=== PATIENT | male | born 1960 | race Caucasian/White ===

== ENCOUNTER 2023-11-30 08:46 | Outpatient (RCR) | payer MEDICARE, SELFPAY ==
[2023-11-30 09:08] VITALS: BP 152/87; PULSE 91; RESP 16; TEMP 36.3; BMI 28.8
--- NOTE | 2023-11-30 10:24 | HP.PCM_ITS ---
History of Present Illness Date of Service: 11/30/23 Chief Complaint: Right foot ulceration History of Wound: Patient is a 63-year-old male who presents to the wound care center today for ulceration subfifth metatarsal head of the right foot. He states that the ulcer has been present for about a day or two prior to his visit to the family physician on 11/23/2023. He stated he noticed some swelling on the right foot and does admit to neuropathy and does not feel anything in his feet. His noted that he had an ulcer on the bottom of the foot near the fifth metatarsal head and did clean it with peroxide and placed Neosporin and a Band- Aid on it. He states that the family doctor did take cultures due to the surrounding cellulitis which was also delineated by skin markings. He was empirically started on clindamycin 150 mg 3 times daily and Cipro 500 mg twice daily. Patient reports antibiotics are improving the redness of the foot and he states he feels well overall. He was referred to the wound care center for continued follow-up and healing of the ulceration of the right foot. 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 He denies N/V/F/chills. Denies further complaints. [facility] Home Medications clindamycin HCl 150 mg capsule (Cleocin HCl) 450 mg PO Q8H 11/30/23 [History Last Taken Unknown] empagliflozin 25 mg tablet (Jardiance) 25 mg PO DAILY 11/30/23 [History Last Taken Unknown] glipizide 5 mg tablet 5 mg PO DAILY 11/30/23 [History Last Taken Unknown] hydrochlorothiazide 25 mg tablet 25 mg PO DAILY 11/30/23 [History Last Taken Unknown] levofloxacin 750 mg tablet 750 mg PO DAILY 11/30/23 [History Last Taken Unknown] rosuvastatin 10 mg tablet (Crestor) 10 mg PO DAILY 11/30/23 [History Last Taken Unknown] ROS Constitutional Constitutional: Denies anorexia, chills, fatigue or fever(s) Eyes Eyes: Denies blurry vision, change in vision or double vision ENT HEENT: Denies dysphagia, nasal congestion, nasal discharge or sore throat Cardiovascular Cardiovascular: Denies chest pain, claudication or palpitations Respiratory/Chest Respiratory/Chest: Denies cough, shortness of breath at rest or wheezing Gastrointestinal Gastrointestinal: Denies abdominal pain, constipation, diarrhea, nausea or vomiting Genitourinary Genitourinary: Denies dysuria, hematuria, urinary frequency or urinary urgency Musculoskeletal Musculoskeletal: Denies joint pain, joint stiffness or joint swelling Integumentary Integumentary: Denies jaundice, lesions, pruritus or rash Neurologic Neurologic: Denies dizziness, numbness or seizures Psychiatric Psychiatric: Denies anxiety or depression Endocrine Endocrinology: Denies cold intolerance or heat intolerance Hematologic/Lymphatic Hematologic/Lymphatic: Denies easy bleeding or easy bruising Vital Signs Vital Signs Vital Signs: 11/30/23 09:08 Temperature 97.4 F L Temperature Source Temporal Pulse Rate 91 Respiratory Rate 16 Blood Pressure 152/87 H Blood Pressure Mean 108 Blood Pressure Source Monitor Blood Pressure Position Sitting Blood Pressure Location Right Arm Oxygen Delivery Method Room Air Weight Weight: 96.615 kg Body Mass Index (BMI) 28.8 Physical Exam Const alert, oriented x3 and no apparent distress General Appearance: cooperative HEENT normocephalic Eyes General Eye: normal appearance of both eyes Neck General: normal visual inspection Lymph Lymphatic: no lymphadenopathy noted and no lymphedema noted Resp normal respiratory effort Cardio regular rate and regular rhythm Extremity normal capillary refill, no joint enlargement, no calf tenderness and no pedal edema Extremity Narrative: Right lower extremity: Vascular: DP and PT pulses palpable. Capillary fill time less than 5 seconds to digits. Normal temperature gradient. Hair growth is diminished to the foot. Neurological: Light touch sensation diminished. Gross sensation intact. Protective sensation is absent to the foot consistent with diabetic peripheral polyneuropathy. Dermatologic: Skin appears well-hydrated with normal turgor. Negative Stemmer sign second digit. No pedal edema noted. He has previously had evidence of cellulitis with border marking still present on skin. There is evidence of resolving/improving erythema while currently on antibiotics. There is an ulceration noted subfifth metatarsal head with fibrogranular tissue in the wound bed and slightly macerated rim with some hyperkeratosis. No malodor, no purulent drainage noted, no palpable fluctuance/bogginess noted, no visible abscess formation. Musculoskeletal: Muscle strength 5 of 5 age-appropriate. There is decreased range of motion of the first metatarsophalangeal joint without pain or crepitus. There is decreased range of motion of the ankle joint in dorsiflexion with knee extended without pain or crepitus. Left lower extremity BKA with prosthesis Skin no rashes or lesions noted, skin turgor normal and no jaundice Neuro moves all extremities Debridement Note Debridement Note Wound debrided: Subfifth metatarsal head right foot Laterality: Right Wound Grade/Stage: Nance stage I Type of Debridement: Excisional debridement Anesthesia Used: 5% Lidocaine Gel Depth: Down to and including healthy tissue and in the subcutaneous layer Percentage of wound debrided: 100 Instrument Used: 5mm curette and #15 blade Tissue Removed: Fibrous, devitalized subcutaneous, biofilm, slough Severity: Fat Layer Exposed Amount of bleeding with debridement: Mild Bleeding Controlled with: Compression and gauze Patient tolerated procedure: Patient tolerated procedure well Post-Debridement Measurements and Additional Note: Post-Debridement Measurements/Treatment - Nurse 1 - General Ulcer Assessment Start: 11/30/23 09:08 Freq: Status: Active Protocol: CHARO Activity Type Activity Date Activity User E-sign Co-sign Detail Recorded Client Recorded Date Recorded By Document 11/30/23 09:08 Desktop 11/30/23 09:34 11/30/23 09:08 - Today's Visit Information Type of service Initial Visit Arrival Mode Wheelchair Patient Identification Verified (Name & Yes ) Height and Weight Height 6 ft Weight 96.615 kg Weight in Pounds 213.0 lbs Weight Measurement Method Stated by Patient Body Mass Index (BMI) 28.8 BMI Classification Overweight BSA - Calixto 2.19 Vital Signs Temperature (97.8 F-99.1 F) 97.4 F L Temperature Source Temporal Pulse Rate (60-100) 91 Pulse Location Monitor Respiratory Rate (12-18) 16 Respiratory rate source Observation Oxygen Delivery Method Room Air Blood Pressure (90/60-120/80) 152/87 H Blood Pressure Mean 108 Source Monitor Position Sitting Blood Pressure Location Right Arm History Since Last Visit- (Skip if this is Patient's initial visit) Left Footwear Regular Shoe Right Footwear Regular Shoe Pain Scale: 0-10 Numeric Is Patient Pain Free? Yes Lower Extremity Assessment/ Foot Assessment/ Toe Nail Assessment Right -Posterior Tibial Palpable Yes -Dorsalis Pedis Palpable Yes -Hair Growth on Legs No -Hair Growth on Toes No -Temperature of Extremity Warm -Capillary Refill Less than 3 Seconds -Dependent Rubor No -Other Deformity No -Prior Foot Ulcer No -Charcot Joint No -Prior Amputation No -Thick No -Discolored No -Deformed No -Improper Length & Hygeine No Communication Assessment Preferred language Malawian Processing Lead Required No Able to Read Yes Able to Write Yes Communication Tools None Caregiver Communication Skills No Impairment Impairment Right Hearing Abillity Normal Left Hearing Abillity Normal Visual Assistive Devices Glasses Teaching Assessment Preferences Verbal,Written Barriers to Learning None Readiness To Learn Excellent Willingness to Engage in Self Management High Activies Readiness to Engage in Self Management High Activities Anxiety Level Calm Cooperation Cooperative Perception Coherent Interest in Health Problem Asks Questions Education Importance Acknowledges Need Does Patient Smoke tobacco or other No substances Is Patient Diabetic Yes Functional Assessment Recent Decline in Ability to Perform Denies Any Declines Assistive Device With Patient Yes List Device(s) with Patient wheelchair Culture/Episcopalian/Garment Worker Cultural/Episcopalian Needs that may affect No Treatment Plan Would you allow our hospital milk pickup driver to No meet you for the purpose of spiritual/ emotional support? Garment Worker to contact place of episcopal No WC - Nurse 1 - General Ulcer Measurement Start: 11/30/23 09:08 Freq: Status: Active Protocol: Activity Type Activity Date Activity User E-sign Co-sign Detail Recorded Client Recorded Date Recorded By Document 11/30/23 09:08 Desktop 11/30/23 09:34 11/30/23 09:08 Wound Center Nurse 1 Right Lateral Plantar -Current Size (cm) - Length 1.1 -Current Size (cm) - Width 1.1 -Current Size (cm) - Depth 0.1 -Total Square Cm 1.21 -Date of Last Picture (Recall this 11/30/23 field) -Photo Taken Yes -Epithelialization None Present -Tunneling No -Undermining/Tunneling No -Circular Undermining No -Exudate Amt None Present -Wound Margin Distinct, Outline Attached -Granulation Amt Small (1-33%) -Granulation Quality [place] -Slough/Fibrin No -Necrosis Amt None Present (0 %) -Necrotic Tissue Type Adherent Slough -Structure Exposed N/A -Texture (Monique-wound Skin Appearance) Assessed -Moisture (Monique-wound Skin Appearance) Assessed -Color (Monique-wound Skin Appearance) Assessed -Temperature (Monique-wound Skin No Abnormality Appearance) (Pt Warm) -Ulcer Cleansing Soap and Water -Foul Odor after Cleansing No -Anesthetic Used 5% Lidocaine Gel WC - Nurse 2 - General Ulcer CM Notes Start: 11/30/23 09:08 Freq: Status: Active Protocol: Activity Type Activity Date Activity User E-sign Co-sign Detail Recorded Client Recorded Date Recorded By Document 11/30/23 09:46 [facility] Desktop 11/30/23 09:59 [facility] 11/30/23 09:46 Wound Center Nurse 2 -Time 09:46 -Correct Patient Yes -Correct Side, Site, Position Yes -Correct Procedure Yes -Procedure Performed Yes -Type of Procedure Debridement -Clinical Debridement Subcutaneous -Tissue Removed Subcutaneous -Post Debridement (cm) - Length 1 -Post Debridement (cm) - Width 1.2 -Post Debridement (cm) - Depth 0.1 -Total Square (Post) (cm) 1.2 -Area of Debridement (cm) - Length 1 -Area of Debridement (cm) - Width 1.2 -Total Square (Area) (cm) 1.2 -Tunneling No -Undermining/Tunneling No -Circular Undermining No -Wound/Ulcer Outcome Not Healed -Ulcer Cleansing Rinsed/ Irrigated with Saline -Foul Odor after Cleansing No -Bioengineered Tissue No -Bleeding Controlled with Pressure -Treatment Response Procedure Tolerated Well -Offloading Yes -Type of Offloading Surgical Shoe -Debridement - Subq, 1st 20sq cm Yes -Wound Comment(s) discussed copay w/ debridement . pt and agreeable. Pain Scale: 0-10 Numeric Is Patient Pain Free? Yes - Nurse 3 - General Ulcer D/C NN Start: 11/30/23 09:08 Freq: Status: Active Protocol: Activity Type Activity Date Activity User E-sign Co-sign Detail Recorded Client Recorded Date Recorded By Document 11/30/23 10:04 Desktop 11/30/23 10:14 11/30/23 10:04 Wound Care Center Nurse 3 Right Lateral Plantar -Ulcer Cleansing Rinsed/ Irrigated with Saline -Foul Odor after Cleansing No -Other Dressing dakins -Primary Dressing Covered/Secured with Dry Gauze & Roll Gauze, Secured with Tape Treatment Response Procedure Tolerated Well Pain Scale: 0-10 Numeric Is Patient Pain Free? Yes WC - Visit Discharge Discharge Condition Stable Ambulatory Status Ambulatory Transportation Private Auto Notes: surgical shoe padded per Dr Collado. Assessment/Plan Assessment/Plan (1) Non-pressure chronic ulcer of other part of right foot with fat layer exposed: CODE(S): L97.512 - Non-pressure chronic ulcer of other part of right foot with fat layer exposed (2) Diabetes mellitus with diabetic polyneuropathy: CODE(S): E11.42 - Type 2 diabetes mellitus with diabetic polyneuropathy (3) Type 2 diabetes mellitus with foot ulcer: CODE(S): E11.621 - Type 2 diabetes mellitus with foot ulcer; L97.509 - Non-pressure chronic ulcer of other part of unspecified foot with unspecified severity (4) Acquired absence of left leg below knee: CODE(S): Z89.512 - Acquired absence of left leg below knee (5) Hypertension: CODE(S): I10 - Essential (primary) hypertension (6) History of colon cancer: CODE(S): Z85.038 - Personal history of other malignant neoplasm of large intestine (7) Hypercholesterolemia: CODE(S): E78.00 - Pure hypercholesterolemia, unspecified PLAN: Plan Patient seen and evaluated Ulceration debrided as noted in the clinical panel above. Ulceration subfifth metatarsal head measures 1.0 cm x 1.2 cm x 0.1 cm. No signs of infection. Dakin's wet-to-dry dressing applied and anchored with Cristobal wrap. Patient was then offloaded in surgical shoe with fifth metatarsal head cut out to reduce pressure at ulcerative site. He and were instructed to change dressing daily demonstration of a dressing change was performed by nursing staff. Discussed with patient to continue to finish oral antibiotic course. He was placed by his PCP on clindamycin 150 mg 3 times daily x 10 days and ciprofloxacin 500 mg twice daily x 10 days. Antibiotic stop date 12/03/2023. Discussed applying for advanced wound care product for application at next visit. Discussed adequate protein intake to aid in wound healing. Darrius supplementation was also recommended. Discussed proper diabetic diet to aim for tight glycemic control. He does report good standing with his A1c per his PCP. Discussed not ambulating barefoot as he does have significant diabetic peripheral polyneuropathy. Discussed that socks do include barefoot. Encouraged shoe gear to be worn at all times. Discussed importance of daily foot checks and pain close examination for suspicious lesions, cuts, wounds, pressure sores and that if he does notice any of these he is to report to PCP or call our office for further evaluation. Discussed signs and symptoms of infection today. Discussed if he has increasing redness about the wound site that moves up the leg, purulent drainage from the wound site, increasing foul odor from the wound, or if he experiences fever greater than 101 degree accompanied by nausea, vomiting, chills that these are signs of a progressing infection and he should report to the ED for IV antibiotics and further evaluation. He and his both voiced understanding of this today. The following work up and care recommendations were made: Dressing: Dakin's wet-to-dry. Change dressing daily. Wash: Soap and water Tissue growth optimization: Dakin's Offload: Continue to offload in surgical shoe with fifth metatarsal head cut out Vascular: Palpable pedal pulses, vascular status not impacting healing Edema: No edema noted Infection: No signs of infection. Patient currently finishing oral antibiotics with improving localized cellulitis. Discussed finishing antibiotics as stated above to completion. Pain: May take [id number] Tylenol for discomfort. Patient does have significant diabetic peripheral polyneuropathy. Host factors: Diabetes mellitus type 2 with peripheral polyneuropathy, history of previous ulceration/infection with BKA left lower extremity. I answered all the patient's questions. To return to the wound healing center in 1 week or call sooner if the patient has any questions or concerns.
--- NOTE | 2023-12-08 12:20 | WC ---
3.25.24 RT LAT PLANTAR FT
== END 2023-12-03 23:59 | disposition home or self-care (01) ==
LOC: WC 08:46
PROVIDERS: PCP Family Medicine; Visit Provider Student in an Organized Health Care Education/Training Program
DX: E11.621 Type 2 diabetes mellitus with foot ulcer (principal); L97.512 Non-pressure chronic ulcer of other part of right foot with fat layer exposed; Z89.512 Acquired absence of left leg below knee; E11.42 Type 2 diabetes mellitus with diabetic polyneuropathy; E78.00 Pure hypercholesterolemia, unspecified; I10 Essential (primary) hypertension; Z79.84 Long term (current) use of oral hypoglycemic drugs; Z79.899 Other long term (current) drug therapy; Z85.038 Personal history of other malignant neoplasm of large intestine
CPT/HCPCS: 11042; 99204; G0463

== ENCOUNTER 2023-12-28 09:15 | Outpatient (RCR) | payer MEDICARE, SELFPAY ==
[2023-12-04 00:52] VITALS: BP 152/87; PULSE 91; RESP 16; TEMP 36.3; BMI 28.8
[2023-12-07 10:11] VITALS: BP 160/77; PULSE 85; RESP 18; TEMP 36.1; BMI 28.8
--- NOTE | 2023-12-07 11:34 | PCM.WC.PN ---
History of Present Illness Date of Service: 12/07/23 Chief Complaint: Right foot ulceration History of Wound: Patient is a 63-year-old male who presents to the wound care center today for ulceration subfifth metatarsal head of the right foot. He states that the ulcer has been present for about a day or two prior to his visit to the family physician on 11/23/2023. He stated he noticed some swelling on the right foot and does admit to neuropathy and does not feel anything in his feet. His noted that he had an ulcer on the bottom of the foot near the fifth metatarsal head and did clean it with peroxide and placed Neosporin and a Band-Aid on it. He states that the family doctor did take cultures due to the surrounding cellulitis which was also delineated by skin markings. He was empirically started on clindamycin 150 mg 3 times daily and Cipro 500 mg twice daily. Patient reports antibiotics are improving the redness of the foot and he states he feels well overall. He was referred to the wound care center for continued follow-up and healing of the ulceration of the right foot. 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 He denies N/V/F/chills. Denies further complaints. Subjective Subjective This is a 63-year-old male who presents to the wound care center for follow-up of a plantar fifth metatarsal head ulceration of the right foot. States he has finished his oral antibiotic and has continued daily dressing changes with Dakin's as instructed. States overall he feels well. Denies constitutional symptoms. Denies further complaints. Objective Data Objective Data Vital Signs: Vital Signs Temp Pulse Resp BP O2 Del Method 97 F L 85 18 160/77 H Room Air 12/07/23 10:11 12/07/23 10:11 12/07/23 10:11 12/07/23 10:11 12/07/23 10:11 Oxygen Delivery Method Room Air Weight: 96.615 kg Body Mass Index (BMI) 28.8 Physical Exam Const alert, oriented x3 and no apparent distress General Appearance: cooperative HEENT normocephalic Eyes General Eye: normal appearance of both eyes Neck General: normal visual inspection Lymph Lymphatic: no lymphadenopathy noted and no lymphedema noted Resp normal respiratory effort Cardio regular rate and regular rhythm Extremity normal capillary refill, no joint enlargement, no calf tenderness and no pedal edema Extremity Narrative: Right lower extremity: Vascular: DP and PT pulses palpable. Capillary fill time less than 5 seconds to digits. Normal temperature gradient. Hair growth is diminished to the foot. Neurological: Light touch sensation diminished. Gross sensation intact. Protective sensation is absent to the foot consistent with diabetic peripheral polyneuropathy. Dermatologic: Skin appears well-hydrated with normal turgor. Negative Stemmer sign second digit. No pedal edema noted. He has previously had evidence of cellulitis with border marking still present on skin. There is evidence of resolving/improving erythema while currently on antibiotics. There is an ulceration noted subfifth metatarsal head with fibrogranular tissue in the wound bed and slightly macerated rim with some hyperkeratosis. No malodor, no purulent drainage noted, no palpable fluctuance/bogginess noted, no visible abscess formation. Musculoskeletal: Muscle strength 5 of 5 age-appropriate. There is decreased range of motion of the first metatarsophalangeal joint without pain or crepitus. There is decreased range of motion of the ankle joint in dorsiflexion with knee extended without pain or crepitus. Left lower extremity BKA with prosthesis Skin no rashes or lesions noted, skin turgor normal and no jaundice Neuro moves all extremities Debridement Note Debridement Note Wound debrided: Subfifth metatarsal head Laterality: Right Wound Grade/Stage: Nance stage I Type of Debridement: Excisional debridement Anesthesia Used: 5% Lidocaine Gel Depth: Down to and including healthy tissue and in the subcutaneous layer Percentage of wound debrided: 100 Instrument Used: 5mm curette Tissue Removed: Fibrous, devitalized subcutaneous, biofilm, slough Severity: Fat Layer Exposed Amount of bleeding with debridement: Mild Bleeding Controlled with: Compression and gauze Patient tolerated procedure: Patient tolerated procedure well Post-Debridement Measurements and Additional Note: Post-Debridement Measurements/Treatment - Nurse 1 - General Ulcer Assessment Start: 12/07/23 10:10 Freq: Status: Active Protocol: CHARO Activity Type Activity Date Activity User E-sign Co-sign Detail Recorded Client Recorded Date Recorded By Document 12/07/23 10:11 OR Desktop 12/07/23 10:14 OR 12/07/23 10:11 - Today's Visit Information Type of service Follow-up Visit (Physician/PATIENT COMPANION ) Arrival Mode Ambulatory Accompanied by Patient Identification Verified (Name & Yes ) Safety Precautions Fall Prevention Height and Weight Body Mass Index (BMI) 28.8 BMI Classification Overweight Vital Signs Temperature (97.8 F-99.1 F) 97 F L Temperature Source Temporal Pulse Rate (60-100) 85 Pulse Location Monitor Respiratory Rate (12-18) 18 Respiratory rate source Observation Oxygen Delivery Method Room Air Blood Pressure (90/60-120/80) 160/77 H Blood Pressure Mean (mm Hg) 104 Source Monitor Position Sitting Blood Pressure Location Left Arm History Since Last Visit- (Skip if this is Patient's initial visit) Has compression in place as prescribed N/A Has offloadiing in place as prescribed N/A Left Footwear Regular Shoe Right Footwear Regular Shoe Pain Scale: 0-10 Numeric Is Patient Pain Free? Yes WC - Nurse 1 - General Ulcer Measurement Start: 12/07/23 10:10 Freq: Status: Active Protocol: Activity Type Activity Date Activity User E-sign Co-sign Detail Recorded Client Recorded Date Recorded By Document 12/07/23 10:11 OR Desktop 12/07/23 10:14 OR 12/07/23 10:11 Wound Center Nurse 1 Right Lateral Plantar -Current Size (cm) - Length 1.3 -Current Size (cm) - Width 1.3 -Current Size (cm) - Depth 0.1 -Total Square Cm 1.69 -Photo Taken No -Tunneling No -Undermining/Tunneling No -Circular Undermining No -Exudate Amt Small -Exudate Type Serosanguineous -Wound Margin Flat & Intact -Granulation Amt Large (67-100%) -Granulation Quality Pale,[place] -Necrosis Amt None Present (0 %) -Necrotic Tissue Type Adherent Slough -Texture (Monique-wound Skin Appearance) Assessed -Moisture (Monique-wound Skin Appearance) Assessed -Color (Monique-wound Skin Appearance) Assessed -Temperature (Monique-wound Skin No Abnormality Appearance) (Pt Warm) -Tenderness on Palpation (Monique-wound No Skin Appearance) -Ulcer Cleansing Rinsed/ Irrigated with Saline -Foul Odor after Cleansing No -Anesthetic Used 5% Lidocaine Gel Lower Limb Edema Present NA WC - Nurse 2 - General Ulcer CM Notes Start: 12/07/23 10:10 Freq: Status: Active Protocol: Activity Type Activity Date Activity User E-sign Co-sign Detail Recorded Client Recorded Date Recorded By Document 12/07/23 10:49 [facility] Desktop 12/07/23 10:56 [facility] 12/07/23 10:49 Wound Center Nurse 2 Right Lateral Plantar -Time 10:50 -Correct Patient Yes -Correct Side, Site, Position Yes -Correct Procedure Yes -Procedure Performed Yes -Type of Procedure Debridement -Clinical Debridement Subcutaneous -Tissue Removed Subcutaneous -Post Debridement (cm) - Length 1.1 -Post Debridement (cm) - Width 1.3 -Post Debridement (cm) - Depth 0.1 -Total Square (Post) (cm) 1.43 -Area of Debridement (cm) - Length 1.1 -Area of Debridement (cm) - Width 1.3 -Total Square (Area) (cm) 1.43 -Tunneling No -Undermining/Tunneling No -Circular Undermining No -Wound/Ulcer Outcome Not Healed -Ulcer Cleansing Rinsed/ Irrigated with Saline -Foul Odor after Cleansing No -Bioengineered Tissue No -Bleeding Controlled with Pressure -Treatment Response Procedure Tolerated Well -Offloading Yes -Type of Offloading Surgical Shoe -Debridement - Subq, 1st 20sq cm Yes Pain Scale: 0-10 Numeric Is Patient Pain Free? Yes WC - Nurse 3 - General Ulcer D/C NN Start: 12/07/23 10:10 Freq: Status: Active Protocol: Activity Type Activity Date Activity User E-sign Co-sign Detail Recorded Client Recorded Date Recorded By Document 12/07/23 11:09 OR Desktop 12/07/23 11:10 OR 12/07/23 11:09 Wound Care Center Nurse 3 Right Lateral Plantar -Primary Dressing Covered/Secured with Dry Gauze, Secured with Tape Right -Compression Wrap Cristobal Wrap Pain Scale: 0-10 Numeric Is Patient Pain Free? Yes Assessment/Plan Assessment/Plan (1) Non-pressure chronic ulcer of other part of right foot with fat layer exposed: CODE(S): L97.512 - Non-pressure chronic ulcer of other part of right foot with fat layer exposed (2) Diabetes mellitus with diabetic polyneuropathy: CODE(S): E11.42 - Type 2 diabetes mellitus with diabetic polyneuropathy (3) Type 2 diabetes mellitus with foot ulcer: CODE(S): E11.621 - Type 2 diabetes mellitus with foot ulcer; L97.509 - Non-pressure chronic ulcer of other part of unspecified foot with unspecified severity (4) Acquired absence of left leg below knee: CODE(S): Z89.512 - Acquired absence of left leg below knee (5) Hypertension: CODE(S): I10 - Essential (primary) hypertension (6) History of colon cancer: CODE(S): Z85.038 - Personal history of other malignant neoplasm of large intestine (7) Hypercholesterolemia: CODE(S): E78.00 - Pure hypercholesterolemia, unspecified PLAN: Plan Patient seen and evaluated Ulceration debrided as noted in the clinical panel above. Ulceration subfifth metatarsal head measures 1.1 cm x 1.3 cm x 0.1 cm. No signs of infection. Dakin's wet-to-dry dressing applied and anchored with Cristobal wrap. Patient was then offloaded in surgical shoe with fifth metatarsal head cut out to reduce pressure at ulcerative site. Discussed continued offloading with the surgical shoe with the fifth metatarsal head cut out. He also uses wheelchair to navigate in house so that he tries to keep pressure off the foot. Does have left lower extremity BKA with prosthesis. He has finished oral antibiotic to completion. Per PCP completed clindamycin 150 mg 3 times daily x 10 days and ciprofloxacin 500 mg twice daily x 10 days. Antibiotic stop date 12/03/2023. Discussed applying for advanced wound care product for application at next visit. Discussed adequate protein intake to aid in wound healing. Darrius supplementation was also recommended. Discussed proper diabetic diet to aim for tight glycemic control. He does report good standing with his A1c per his PCP. Discussed not ambulating barefoot as he does have significant diabetic peripheral polyneuropathy. Discussed that socks do include barefoot. Encouraged shoe gear to be worn at all times. Discussed importance of daily foot checks and pain close examination for suspicious lesions, cuts, wounds, pressure sores and that if he does notice any of these he is to report to PCP or call our office for further evaluation. Discussed signs and symptoms of infection today. Discussed if he has increasing redness about the wound site that moves up the leg, purulent drainage from the wound site, increasing foul odor from the wound, or if he experiences fever greater than 101 degree accompanied by nausea, vomiting, chills that these are signs of a progressing infection and he should report to the ED for IV antibiotics and further evaluation. He and his both voiced understanding of this today. The following work up and care recommendations were made: Dressing: Dakin's wet-to-dry. Change dressing daily. Wash: Soap and water Tissue growth optimization: Dakin's Offload: Continue to offload in surgical shoe with fifth metatarsal head cut out Vascular: Palpable pedal pulses, vascular status not impacting healing Edema: No edema noted Infection: No signs of infection. Patient currently finishing oral antibiotics with improving localized cellulitis. Discussed finishing antibiotics as stated above to completion. Pain: May take [id number] Tylenol for discomfort. Patient does have significant diabetic peripheral polyneuropathy. Host factors: Diabetes mellitus type 2 with peripheral polyneuropathy, history of previous ulceration/infection with BKA left lower extremity. I answered all the patient's questions. To return to the wound healing center in 1 week or call sooner if the patient has any questions or concerns.
--- NOTE | 2023-12-07 13:27 | WC ---
pt aware of copay with debridement. discussed during office visit. agreeable to proceed w/ debridement today.
[2023-12-14 08:26] VITALS: BP 147/81; PULSE 95; RESP 16; BMI 28.8
--- NOTE | 2023-12-14 09:18 | PN.PCM_ITS ---
History of Present Illness Date of Service: 12/14/23 Chief Complaint: Right foot ulceration History of Wound: Patient is a 63-year-old male who presents to the wound care center today for ulceration subfifth metatarsal head of the right foot. He states that the ulcer has been present for about a day or two prior to his visit to the family physician on 11/23/2023. He stated he noticed some swelling on the right foot and does admit to neuropathy and does not feel anything in his feet. His noted that he had an ulcer on the bottom of the foot near the fifth metatarsal head and did clean it with peroxide and placed Neosporin and a Band- Aid on it. He states that the family doctor did take cultures due to the surrounding cellulitis which was also delineated by skin markings. He was empirically started on clindamycin 150 mg 3 times daily and Cipro 500 mg twice daily. Patient reports antibiotics are improving the redness of the foot and he states he feels well overall. He was referred to the wound care center for continued follow-up and healing of the ulceration of the right foot. 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 He denies N/V/F/chills. Denies further complaints. Subjective Subjective This is a 63-year-old male who presents to the wound care center for follow-up of a plantar fifth metatarsal head ulceration of the right foot. States he has continued daily dressing changes with Dakin's as instructed. States overall he feels well. Continues Darrius supplement but he does not care for the taste. Denies constitutional symptoms. Denies further complaints. Objective Data Objective Data Vital Signs: Vital Signs Temp Pulse Resp BP O2 Del Method 97 F L 95 16 147/81 H Room Air 12/07/23 10:11 12/14/23 08:26 12/14/23 08:26 12/14/23 08:26 12/14/23 08:26 Oxygen Delivery Method Room Air Weight: 96.615 kg Body Mass Index (BMI) 28.8 Physical Exam Const alert, oriented x3 and no apparent distress General Appearance: cooperative HEENT normocephalic Eyes General Eye: normal appearance of both eyes Neck General: normal visual inspection Lymph Lymphatic: no lymphadenopathy noted and no lymphedema noted Resp normal respiratory effort Cardio regular rate and regular rhythm Extremity normal capillary refill, no joint enlargement, no calf tenderness and no pedal edema Extremity Narrative: Right lower extremity: Vascular: DP and PT pulses palpable. Capillary fill time less than 5 seconds to digits. Normal temperature gradient. Hair growth is diminished to the foot. Neurological: Light touch sensation diminished. Gross sensation intact. Protective sensation is absent to the foot consistent with diabetic peripheral polyneuropathy. Dermatologic: Skin appears well-hydrated with normal turgor. Negative Stemmer sign second digit. No pedal edema noted. He has resolved cellulitis. There is an ulceration noted subfifth metatarsal head with fibrogranular tissue in the wound bed. No malodor, no purulent drainage noted, no palpable fluctuance/bogginess noted, no visible abscess formation. Musculoskeletal: Muscle strength 5 of 5 age-appropriate. There is decreased range of motion of the first metatarsophalangeal joint without pain or crepitus. There is decreased range of motion of the ankle joint in dorsiflexion with knee extended without pain or crepitus. Left lower extremity BKA with prosthesis Skin no rashes or lesions noted, skin turgor normal and no jaundice Neuro moves all extremities Debridement Note Debridement Note Wound debrided: Subfifth metatarsal head Laterality: Right Wound Grade/Stage: Nance stage I Type of Debridement: Excisional debridement Anesthesia Used: 5% Lidocaine Gel Depth: Down to and including healthy tissue and in the subcutaneous layer Percentage of wound debrided: 100 Instrument Used: 3mm curette Tissue Removed: Fibrous, devitalized subcutaneous, biofilm, slough Severity: Fat Layer Exposed Amount of bleeding with debridement: Mild Bleeding Controlled with: Compression and gauze Patient tolerated procedure: Patient tolerated procedure well Post-Debridement Measurements and Additional Note: Post-Debridement Measurements/Treatment - Nurse 1 - General Ulcer Assessment Start: 12/07/23 10:10 Freq: Status: Active Protocol: CHARO Activity Type Activity Date Activity User E-sign Co-sign Detail Recorded Client Recorded Date Recorded By Document 12/07/23 10:11 MT Desktop 12/07/23 10:14 MT Document 12/14/23 08:26 Desktop 12/14/23 08:35 12/07/23 12/14/23 10:11 08:26 - Today's Visit Information Type of service Follow-up Visit Follow-up Visit (Physician/DIRECTOR OF RESERVATIONS (Physician/DIRECTOR OF RESERVATIONS ) ) Arrival Mode Ambulatory Wheelchair Transfer Assistance None Accompanied by Patient Identification Verified (Name & Yes Yes ) Patient Requires Transmission-Based No Precautions Safety Precautions Fall Prevention Height and Weight Body Mass Index (BMI) 28.8 28.8 BMI Classification Overweight Overweight Vital Signs Temperature (97.8 F-99.1 F) 97 F L Temperature Source Temporal Pulse Rate (60-100) 85 95 Pulse Location Monitor Monitor Respiratory Rate (12-18) 18 16 Respiratory rate source Observation Observation Oxygen Delivery Method Room Air Room Air Blood Pressure (90/60-120/80) 160/77 H 147/81 H Blood Pressure Mean (mm Hg) 104 103 Source Monitor Monitor Position Sitting Sitting Blood Pressure Location Left Arm Right Arm History Since Last Visit- (Skip if this is Patient's initial visit) Have you changed medications since your No last visit? Any new allergies or adverse reactions No Had a fall/change in ADL's that may No increase risk of falls Signs or symptoms of abuse and/or No neglect since last visit Have you been in the hospital since your No last visit? Has dressing in place as prescribed Yes Has compression in place as prescribed N/A N/A Has offloadiing in place as prescribed N/A Yes Experienced any changes in pain level or No management Left Footwear Regular Shoe Right Footwear Regular Shoe Pain Scale: 0-10 Numeric Is Patient Pain Free? Yes Yes WC - Nurse 1 - General Ulcer Measurement Start: 12/07/23 10:10 Freq: Status: Active Protocol: Activity Type Activity Date Activity User E-sign Co-sign Detail Recorded Client Recorded Date Recorded By Document 12/07/23 10:11 NM [email or web address] 12/07/23 10:14 MT Document 12/14/23 08:26 Desktop 12/14/23 08:35 12/07/23 12/14/23 10:11 08:26 Wound Center Nurse 1 Right Lateral Plantar -Combined with other wound No -Current Size (cm) - Length 1.3 1 -Current Size (cm) - Width 1.3 0.8 -Current Size (cm) - Depth 0.1 0.2 -Total Square Cm 1.69 0.8 -Date of Last Picture (Recall this 12/14/23 field) -Photo Taken No Yes -Epithelialization Small 1-33% -Tunneling No No -Undermining/Tunneling No No -Circular Undermining No No -Exudate Amt Small Medium -Exudate Type Serosanguineous Serosanguineous -Wound Margin Flat & Intact Distinct, Outline Attached -Granulation Amt Large (67-100%) Large (67-100%) -Granulation Quality Pale,[place] Red -Slough/Fibrin Yes -Necrosis Amt None Present (0 Small (1-33%) %) -Necrotic Tissue Type Adherent Slough Adherent Slough -Texture (Monique-wound Skin Appearance) Assessed Assessed,Callus ,Scarring -Moisture (Monique-wound Skin Appearance) Assessed Assessed,Dry/ Scaly -Color (Monique-wound Skin Appearance) Assessed No Abnormality -Temperature (Monique-wound Skin No Abnormality No Abnormality Appearance) (Pt Warm) (Pt Warm) -Tenderness on Palpation (Monique-wound No No Skin Appearance) -Ulcer Cleansing Rinsed/ Rinsed/ Irrigated with Irrigated with Saline Saline -Foul Odor after Cleansing No No -Anesthetic Used 5% Lidocaine 5% Lidocaine Gel Gel Lower Limb Edema Present NA WC - Nurse 2 - General Ulcer CM Notes Start: 12/07/23 10:10 Freq: Status: Active Protocol: Activity Type Activity Date Activity User E-sign Co-sign Detail Recorded Client Recorded Date Recorded By Document 12/07/23 10:49 [facility] Desktop 12/07/23 10:56 [facility] Document 12/14/23 08:58 [facility] Desktop 12/14/23 09:04 [facility] 12/07/23 12/14/23 10:49 08:58 Wound Center Nurse 2 Right Lateral Plantar -Time 10:50 08:58 -Correct Patient Yes Yes -Correct Side, Site, Position Yes Yes -Correct Procedure Yes Yes -Procedure Performed Yes Yes -Type of Procedure Debridement Debridement -Clinical Debridement Subcutaneous Subcutaneous -Tissue Removed Subcutaneous Subcutaneous -Post Debridement (cm) - Length 1.1 1.1 -Post Debridement (cm) - Width 1.3 0.9 -Post Debridement (cm) - Depth 0.1 0.1 -Total Square (Post) (cm) 1.43 0.99 -Area of Debridement (cm) - Length 1.1 1.1 -Area of Debridement (cm) - Width 1.3 0.9 -Total Square (Area) (cm) 1.43 0.99 -Tunneling No No -Undermining/Tunneling No No -Circular Undermining No No -Wound/Ulcer Outcome Not Healed Not Healed -Ulcer Cleansing Rinsed/ Rinsed/ Irrigated with Irrigated with Saline Saline -Foul Odor after Cleansing No No -Bioengineered Tissue No Yes -Type of Bioengineered Tissue Epifix 18mm Disc -Expiration Date 07/05/28 -Product Lot Number [id number] -Percent Used 100 -Lot number of Saline Used [id number] -Bleeding Controlled with Pressure Pressure -Treatment Response Procedure Procedure Tolerated Well Tolerated Well -Offloading Yes Yes -Type of Offloading Surgical Shoe Surgical Shoe -Debridement - Subq, 1st 20sq cm Yes No -Apply Skin Sub - 1st 25 sq cm - Feet 1 -Epifix 18mm Disc 3 Pain Scale: 0-10 Numeric Is Patient Pain Free? Yes Yes - Nurse 3 - General Ulcer D/C NN Start: 12/07/23 10:10 Freq: Status: Active Protocol: Activity Type Activity Date Activity User E-sign Co-sign Detail Recorded Client Recorded Date Recorded By Document 12/07/23 11:09 NM Desktop 12/07/23 11:10 NM 12/07/23 11:09 Wound Care Center Nurse 3 Right Lateral Plantar -Primary Dressing Covered/Secured with Dry Gauze, Secured with Tape Right -Compression Wrap Cristobal Wrap Pain Scale: 0-10 Numeric Is Patient Pain Free? Yes Assessment/Plan Assessment/Plan (1) Non-pressure chronic ulcer of other part of right foot with fat layer exposed: CODE(S): L97.512 - Non-pressure chronic ulcer of other part of right foot with fat layer exposed (2) Diabetes mellitus with diabetic polyneuropathy: CODE(S): E11.42 - Type 2 diabetes mellitus with diabetic polyneuropathy (3) Type 2 diabetes mellitus with foot ulcer: CODE(S): E11.621 - Type 2 diabetes mellitus with foot ulcer; L97.509 - Non-pressure chronic ulcer of other part of unspecified foot with unspecified severity (4) Acquired absence of left leg below knee: CODE(S): Z89.512 - Acquired absence of left leg below knee (5) Hypertension: CODE(S): I10 - Essential (primary) hypertension (6) History of colon cancer: CODE(S): Z85.038 - Personal history of other malignant neoplasm of large intestine (7) Hypercholesterolemia: CODE(S): E78.00 - Pure hypercholesterolemia, unspecified PLAN: Plan Patient seen and evaluated Ulceration debrided as noted in the clinical panel above. Ulceration subfifth metatarsal head measures 1.1 cm x 0.9 cm x 0.1 cm. No signs of infection. Discussed discontinuing Dakin's at this time. EpiFix graft #1 was applied to the wound base and dressed with Adaptic touch and anchored with Steri-Strips. Foot then dressed with dry sterile dressing and Cristobal wrap. Patient was then offloaded in surgical shoe with fifth metatarsal head cut out to reduce pressure at ulcerative site. Discussed he is to not get the dressing wet. Recommended cast bag covering when showering. Discussed he may change outer dressing as needed. Ulceration does demonstrate slight reduction in size versus previous visit Discussed continued offloading with the surgical shoe with the fifth metatarsal head cut out. He also uses wheelchair to navigate in house so that he tries to keep pressure off the foot. Does have left lower extremity BKA with prosthesis. He has finished oral antibiotic to completion. Per PCP completed clindamycin 150 mg 3 times daily x 10 days and ciprofloxacin 500 mg twice daily x 10 days. Antibiotic stop date 12/03/2023. He has been approved for advanced wound care product, EpiFix. Will continue to apply. Discussed adequate protein intake to aid in wound healing. Darrius supplementation was also recommended. Discussed proper diabetic diet to aim for tight glycemic control. He does report good standing with his A1c per his PCP. Discussed not ambulating barefoot as he does have significant diabetic peripheral polyneuropathy. Discussed that socks do include barefoot. Encouraged shoe gear to be worn at all times. Discussed importance of daily foot checks and pain close examination for suspicious lesions, cuts, wounds, pressure sores and that if he does notice any of these he is to report to PCP or call our office for further evaluation. Discussed signs and symptoms of infection today. Discussed if he has increasing redness about the wound site that moves up the leg, purulent drainage from the wound site, increasing foul odor from the wound, or if he experiences fever greater than 101 degree accompanied by nausea, vomiting, chills that these are signs of a progressing infection and he should report to the ED for IV antibiotics and further evaluation. He and his both voiced understanding of this today. The following work up and care recommendations were made: Dressing: EpiFix, Adaptic touch, Steri-Strips, dry sterile dressing with Cristobal wrap compression. May change outer dressing as needed. Wash: Do not get wet Tissue growth optimization: EpiFix Offload: Continue to offload in surgical shoe with fifth metatarsal head cut out Vascular: Palpable pedal pulses, vascular status not impacting healing Edema: No edema noted Infection: No signs of infection. Patient currently finishing oral antibiotics with improving localized cellulitis. Discussed finishing antibiotics as stated above to completion. Pain: May take [id number] Tylenol for discomfort. Patient does have significant diabetic peripheral polyneuropathy. Host factors: Diabetes mellitus type 2 with peripheral polyneuropathy, history of previous ulceration/infection with BKA left lower extremity. I answered all the patient's questions. To return to the wound healing center in 1 week or call sooner if the patient has any questions or concerns.
[2023-12-21 09:14] VITALS: BP 140/81; PULSE 89; RESP 14; TEMP 36.4; BMI 28.8
--- NOTE | 2023-12-21 10:49 | PN.PCM_ITS ---
History of Present Illness Date of Service: 12/21/23 Chief Complaint: Right foot ulceration History of Wound: Patient is a 63-year-old male who presents to the wound care center today for ulceration subfifth metatarsal head of the right foot. He states that the ulcer has been present for about a day or two prior to his visit to the family physician on 11/23/2023. He stated he noticed some swelling on the right foot and does admit to neuropathy and does not feel anything in his feet. His noted that he had an ulcer on the bottom of the foot near the fifth metatarsal head and did clean it with peroxide and placed Neosporin and a Band- Aid on it. He states that the family doctor did take cultures due to the surrounding cellulitis which was also delineated by skin markings. He was empirically started on clindamycin 150 mg 3 times daily and Cipro 500 mg twice daily. Patient reports antibiotics are improving the redness of the foot and he states he feels well overall. He was referred to the wound care center for continued follow-up and healing of the ulceration of the right foot. 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 He denies N/V/F/chills. Denies further complaints. Subjective Subjective This is a 63-year-old male who presents to the wound care center for follow-up of a plantar fifth metatarsal head ulceration of the right foot. He is left grafting product in place and states he has not needed to change the outer dressing. States overall he feels well. Continues Darrius supplement for healing but he does not care for the taste. Denies constitutional symptoms. Denies further complaints. Objective Data Objective Data Vital Signs: Vital Signs Temp Pulse Resp BP O2 Del Method 97.6 F L 89 14 140/81 H Room Air 12/21/23 09:14 12/21/23 09:14 12/21/23 09:14 12/21/23 09:14 12/14/23 08:26 Oxygen Delivery Method Room Air Weight: 96.615 kg Body Mass Index (BMI) 28.8 Physical Exam Const alert, oriented x3 and no apparent distress General Appearance: cooperative HEENT normocephalic Eyes General Eye: normal appearance of both eyes Neck General: normal visual inspection Lymph Lymphatic: no lymphadenopathy noted and no lymphedema noted Resp normal respiratory effort Cardio regular rate and regular rhythm Extremity normal capillary refill, no joint enlargement, no calf tenderness and no pedal edema Extremity Narrative: Right lower extremity: Vascular: DP and PT pulses palpable. Capillary fill time less than 5 seconds to digits. Normal temperature gradient. Hair growth is diminished to the foot. Neurological: Light touch sensation diminished. Gross sensation intact. Protective sensation is absent to the foot consistent with diabetic peripheral polyneuropathy. Dermatologic: Skin appears well-hydrated with normal turgor. Negative Stemmer sign second digit. No pedal edema noted. There is an ulceration noted subfifth metatarsal head with fibrogranular tissue in the wound bed. No malodor, no purulent drainage noted, no palpable fluctuance/bogginess noted, no visible abscess formation. Musculoskeletal: Muscle strength 5 of 5 age-appropriate. There is decreased range of motion of the first metatarsophalangeal joint without pain or crepitus. There is decreased range of motion of the ankle joint in dorsiflexion with knee extended without pain or crepitus. Left lower extremity BKA with prosthesis Skin no rashes or lesions noted, skin turgor normal and no jaundice Neuro moves all extremities Debridement Note Debridement Note Wound debrided: Subfifth metatarsal head Laterality: Right Wound Grade/Stage: Nance stage I Type of Debridement: Excisional debridement Anesthesia Used: 5% Lidocaine Gel Depth: Down to and including healthy tissue and in the subcutaneous layer Percentage of wound debrided: 100 Instrument Used: #15 blade Tissue Removed: Fibrous, devitalized subcutaneous, biofilm, slough Severity: Fat Layer Exposed Amount of bleeding with debridement: Mild Bleeding Controlled with: Compression and gauze Patient tolerated procedure: Patient tolerated procedure well Post-Debridement Measurements and Additional Note: Post-Debridement Measurements/Treatment - Nurse 1 - General Ulcer Assessment Start: 12/07/23 10:10 Freq: Status: Active Protocol: CHARO Activity Type Activity Date Activity User E-sign Co-sign Detail Recorded Client Recorded Date Recorded By Document 12/07/23 10:11 MT Desktop 12/07/23 10:14 MT Document 12/14/23 08:26 GM Desktop 12/14/23 08:35 GM Document 12/21/23 09:14 ML Desktop 12/21/23 09:18 ML 12/07/23 12/14/23 12/21/23 10:11 08:26 09:14 - Today's Visit Information Type of service Follow-up Visit Follow-up Visit Follow-up Visit (Physician/PUBLIC EVENTS FACILITIES RENTAL MANAGER (Physician/PUBLIC EVENTS FACILITIES RENTAL MANAGER (Physician/PUBLIC EVENTS FACILITIES RENTAL MANAGER ) ) ) Arrival Mode Ambulatory Wheelchair Wheelchair Transfer Assistance None None Accompanied by Patient Identification Verified (Name & Yes Yes Yes ) Patient Requires Transmission-Based No Precautions Safety Precautions Fall Prevention Height and Weight Body Mass Index (BMI) 28.8 28.8 28.8 BMI Classification Overweight Overweight Overweight Vital Signs Temperature (97.8 F-99.1 F) 97 F L 97.6 F L Temperature Source Temporal Temporal Pulse Rate (60-100) 85 95 89 Pulse Location Monitor Monitor Monitor Respiratory Rate (12-18) 18 16 14 Respiratory rate source Observation Observation Observation Oxygen Delivery Method Room Air Room Air Blood Pressure (90/60-120/80) 160/77 H 147/81 H 140/81 H Blood Pressure Mean (mm Hg) 104 103 100 Source Monitor Monitor Monitor Position Sitting Sitting Sitting Blood Pressure Location Left Arm Right Arm Left Arm History Since Last Visit- (Skip if this is Patient's initial visit) Have you changed medications since your No No last visit? Any new allergies or adverse reactions No No Had a fall/change in ADL's that may No No increase risk of falls Signs or symptoms of abuse and/or No neglect since last visit Have you been in the hospital since your No No last visit? Has dressing in place as prescribed Yes Yes Has compression in place as prescribed N/A N/A Yes Has offloadiing in place as prescribed N/A Yes Yes Experienced any changes in pain level or No No management Left Footwear Regular Shoe Surgical Shoe with pressure relief insole Right Footwear Regular Shoe Pain Scale: 0-10 Numeric Is Patient Pain Free? Yes Yes Yes - Nurse 1 - General Ulcer Measurement Start: 12/07/23 10:10 Freq: Status: Active Protocol: Activity Type Activity Date Activity User E-sign Co-sign Detail Recorded Client Recorded Date Recorded By Document 12/07/23 10:11 MT Desktop 12/07/23 10:14 MT Document 12/14/23 08:26 GM Desktop 12/14/23 08:35 GM Document 12/21/23 09:14 ML Desktop 12/21/23 09:18 ML 12/07/23 12/14/23 12/21/23 10:11 08:26 09:14 Wound Center Nurse 1 Right Lateral Plantar -Combined with other wound No -Current Size (cm) - Length 1.3 1 1 -Current Size (cm) - Width 1.3 0.8 1 -Current Size (cm) - Depth 0.1 0.2 0.2 -Total Square Cm 1.69 0.8 1 -Date of Last Picture (Recall this 12/14/23 field) -Photo Taken No Yes No -Epithelialization Small 1-33% Medium 34-66% -Tunneling No No -Undermining/Tunneling No No -Circular Undermining No No -Exudate Amt Small Medium Medium -Exudate Type Serosanguineous Serosanguineous Serosanguineous -Wound Margin Flat & Intact Distinct, Distinct, Outline Outline Attached Attached -Granulation Amt Large (67-100%) Large (67-100%) Medium (34-66%) -Granulation Quality Pale,[place] Red -Slough/Fibrin Yes -Necrosis Amt None Present (0 Small (1-33%) Medium (34-66%) %) -Necrotic Tissue Type Adherent Slough Adherent Slough -Texture (Monique-wound Skin Appearance) Assessed Assessed,Callus No Abnormality ,Scarring -Moisture (Monique-wound Skin Appearance) Assessed Assessed,Dry/ No Abnormality Scaly -Color (Monique-wound Skin Appearance) Assessed No Abnormality No Abnormality -Temperature (Monique-wound Skin No Abnormality No Abnormality No Abnormality Appearance) (Pt Warm) (Pt Warm) (Pt Warm) -Tenderness on Palpation (Monique-wound No No Skin Appearance) -Ulcer Cleansing Rinsed/ Rinsed/ Irrigated with Irrigated with Saline Saline -Foul Odor after Cleansing No No -Anesthetic Used 5% Lidocaine 5% Lidocaine 5% Lidocaine Gel Gel Gel Lower Limb Edema Present NA WC - Nurse 2 - General Ulcer CM Notes Start: 12/07/23 10:10 Freq: Status: Active Protocol: Activity Type Activity Date Activity User E-sign Co-sign Detail Recorded Client Recorded Date Recorded By Document 12/07/23 10:49 BM Desktop 12/07/23 10:56 BM Document 12/14/23 08:58 BM Desktop 12/14/23 09:04 BMF Document 12/21/23 09:24 BM Desktop 12/21/23 09:28 BMF 12/07/23 12/14/23 12/21/23 10:49 08:58 09:24 Wound Center Nurse 2 Right Lateral Plantar -Time 10:50 08:58 09:25 -Correct Patient Yes Yes Yes -Correct Side, Site, Position Yes Yes Yes -Correct Procedure Yes Yes Yes -Procedure Performed Yes Yes Yes -Type of Procedure Debridement Debridement Debridement -Clinical Debridement Subcutaneous Subcutaneous Subcutaneous -Tissue Removed Subcutaneous Subcutaneous Subcutaneous -Post Debridement (cm) - Length 1.1 1.1 0.9 -Post Debridement (cm) - Width 1.3 0.9 0.7 -Post Debridement (cm) - Depth 0.1 0.1 0.1 -Total Square (Post) (cm) 1.43 0.99 0.63 -Area of Debridement (cm) - Length 1.1 1.1 0.9 -Area of Debridement (cm) - Width 1.3 0.9 0.7 -Total Square (Area) (cm) 1.43 0.99 0.63 -Tunneling No No No -Undermining/Tunneling No No No -Circular Undermining No No No -Wound/Ulcer Outcome Not Healed Not Healed Not Healed -Ulcer Cleansing Rinsed/ Rinsed/ Rinsed/ Irrigated with Irrigated with Irrigated with Saline Saline Saline -Foul Odor after Cleansing No No No -Bioengineered Tissue No Yes Yes -Type of Bioengineered Tissue Epifix 18mm Epifix 18mm Disc Disc -Expiration Date 07/05/28 07/05/28 -Product Lot Number [id number] -Percent Used 100 100 -Lot number of Saline Used [id number] -Bleeding Controlled with Pressure Pressure Pressure -Treatment Response Procedure Procedure Procedure Tolerated Well Tolerated Well Tolerated Well -Offloading Yes Yes Yes -Type of Offloading Surgical Shoe Surgical Shoe Surgical Shoe -Other Type of Offloading offloading pad -Debridement - Subq, 1st 20sq cm Yes No No -Apply Skin Sub - 1st 25 sq cm - Feet 1 1 -Epifix 18mm Disc 3 3 Pain Scale: 0-10 Numeric Is Patient Pain Free? Yes Yes Yes WC - Nurse 3 - General Ulcer D/C NN Start: 12/07/23 10:10 Freq: Status: Active Protocol: Activity Type Activity Date Activity User E-sign Co-sign Detail Recorded Client Recorded Date Recorded By Document 12/07/23 11:09 MT Desktop 12/07/23 11:10 MT Document 12/14/23 09:20 KW Desktop 12/14/23 09:20 KW Document 12/21/23 09:43 ML Desktop 12/21/23 09:44 ML 12/07/23 12/14/23 12/21/23 11:09 09:20 09:43 Wound Care Center Nurse 3 Right Lateral Plantar -Primary Dressing Applied Mepilex Border -Primary Dressing Covered/Secured with Dry Gauze, Dry Gauze & Secured with Roll Gauze, Tape Secured with Tape -Mepilex Border 1 Right -Compression Wrap Cristobal Wrap Cristobal Wrap Pain Scale: 0-10 Numeric Is Patient Pain Free? Yes Yes Yes WC - Visit Discharge Discharge Condition Stable Stable Ambulatory Status Wheelchair Wheelchair Transportation Private Auto Accompanied by Medication Reconcilliation completed & No provided to patient/care provider Clinical Summary of Care Provided Yes Yes Assessment/Plan Assessment/Plan (1) Non-pressure chronic ulcer of other part of right foot with fat layer exposed: CODE(S): L97.512 - Non-pressure chronic ulcer of other part of right foot with fat layer exposed (2) Diabetes mellitus with diabetic polyneuropathy: CODE(S): E11.42 - Type 2 diabetes mellitus with diabetic polyneuropathy (3) Type 2 diabetes mellitus with foot ulcer: CODE(S): E11.621 - Type 2 diabetes mellitus with foot ulcer; L97.509 - Non-pressure chronic ulcer of other part of unspecified foot with unspecified severity (4) Acquired absence of left leg below knee: CODE(S): Z89.512 - Acquired absence of left leg below knee (5) Hypertension: CODE(S): I10 - Essential (primary) hypertension (6) History of colon cancer: CODE(S): Z85.038 - Personal history of other malignant neoplasm of large intestine (7) Hypercholesterolemia: CODE(S): E78.00 - Pure hypercholesterolemia, unspecified PLAN: Plan Patient seen and evaluated Ulceration debrided as noted in the clinical panel above. Ulceration subfifth metatarsal head measures 0.9 cm x 0.7 cm x 0.1 cm. No signs of infection. EpiFix graft #2 was applied to the wound base and dressed with Adaptic touch and anchored with Steri-Strips. Foot then dressed with dry sterile dressing and Cristobal wrap. Patient was then offloaded in surgical shoe with fifth metatarsal head cut out to reduce pressure at ulcerative site. Discussed he is to not get the dressing wet. Recommended cast bag covering when showering. Discussed he may change outer dressing as needed. Ulceration does demonstrate continued reduction in size versus previous visit. Discussed continued offloading with the surgical shoe with the fifth metatarsal head cut out. He also uses wheelchair to navigate in house so that he tries to keep pressure off the foot. Does have left lower extremity BKA with prosthesis. He has finished oral antibiotic to completion. Per PCP completed clindamycin 150 mg 3 times daily x 10 days and ciprofloxacin 500 mg twice daily x 10 days. Antibiotic stop date was 12/03/2023. He has been approved for advanced wound care product, EpiFix. Will continue to apply. Discussed adequate protein intake to aid in wound healing. Darrius supplementation was also recommended. Discussed proper diabetic diet to aim for tight glycemic control. He does report good standing with his A1c per his PCP. Discussed not ambulating barefoot as he does have significant diabetic peripheral polyneuropathy. Discussed that socks do include barefoot. Encouraged shoe gear to be worn at all times. Discussed importance of daily foot checks and pain close examination for suspicious lesions, cuts, wounds, pressure sores and that if he does notice any of these he is to report to PCP or call our office for further evaluation. Discussed signs and symptoms of infection today. Discussed if he has increasing redness about the wound site that moves up the leg, purulent drainage from the wound site, increasing foul odor from the wound, or if he experiences fever greater than 101 degree accompanied by nausea, vomiting, chills that these are signs of a progressing infection and he should report to the ED for IV antibiotics and further evaluation. He and his both voiced understanding of this today. The following work up and care recommendations were made: Dressing: EpiFix, Adaptic touch, Steri-Strips, dry sterile dressing with Cristobal wrap compression. May change outer dressing as needed. Wash: Do not get wet Tissue growth optimization: EpiFix Offload: Continue to offload in surgical shoe with fifth metatarsal head cut out Vascular: Palpable pedal pulses, vascular status not impacting healing Edema: No edema noted Infection: No signs of infection. Patient currently finishing oral antibiotics with improving localized cellulitis. Discussed finishing antibiotics as stated above to completion. Pain: May take [id number] Tylenol for discomfort. Patient does have significant diabetic peripheral polyneuropathy. Host factors: Diabetes mellitus type 2 with peripheral polyneuropathy, history of previous ulceration/infection with BKA left lower extremity. I answered all the patient's questions. To return to the wound healing center in 1 week or call sooner if the patient has any questions or concerns.
[2023-12-28 09:21] VITALS: BP 139/83; PULSE 93; RESP 18; TEMP 37.1; BMI 28.8
--- NOTE | 2023-12-28 10:06 | PN.PCM_ITS ---
History of Present Illness Date of Service: 12/28/23 Chief Complaint: Right foot ulceration History of Wound: Patient is a 63-year-old male who presents to the wound care center today for ulceration subfifth metatarsal head of the right foot. He states that the ulcer has been present for about a day or two prior to his visit to the family physician on 11/23/2023. He stated he noticed some swelling on the right foot and does admit to neuropathy and does not feel anything in his feet. His noted that he had an ulcer on the bottom of the foot near the fifth metatarsal head and did clean it with peroxide and placed Neosporin and a Band- Aid on it. He states that the family doctor did take cultures due to the surrounding cellulitis which was also delineated by skin markings. He was empirically started on clindamycin 150 mg 3 times daily and Cipro 500 mg twice daily. Patient reports antibiotics are improving the redness of the foot and he states he feels well overall. He was referred to the wound care center for continued follow-up and healing of the ulceration of the right foot. 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 He denies N/V/F/chills. Denies further complaints. Subjective Subjective This is a 63-year-old male who presents to the wound care center for follow-up of a plantar fifth metatarsal head ulceration of the right foot. He is left grafting product in place and states he has not needed to change the outer dressing. States overall he feels well. He is trying to stay off his foot as much as he can. Continues Darrius supplement for healing but he does not care for the taste. Denies constitutional symptoms. Denies further complaints. Objective Data Objective Data Vital Signs: Vital Signs Temp Pulse Resp BP O2 Del Method 98.7 F 93 18 139/83 H Room Air 12/28/23 09:21 12/28/23 09:21 12/28/23 09:21 12/28/23 09:21 12/14/23 08:26 Oxygen Delivery Method Room Air Weight: 96.615 kg Body Mass Index (BMI) 28.8 Physical Exam Const alert, oriented x3 and no apparent distress General Appearance: cooperative HEENT normocephalic Eyes General Eye: normal appearance of both eyes Neck General: normal visual inspection Lymph Lymphatic: no lymphadenopathy noted and no lymphedema noted Resp normal respiratory effort Cardio regular rate and regular rhythm Extremity normal capillary refill, no joint enlargement, no calf tenderness and no pedal edema Extremity Narrative: Right lower extremity: Vascular: DP and PT pulses palpable. Capillary fill time less than 5 seconds to digits. Normal temperature gradient. Hair growth is diminished to the foot. Neurological: Light touch sensation diminished. Gross sensation intact. Protective sensation is absent to the foot consistent with diabetic peripheral polyneuropathy. Dermatologic: Skin appears well-hydrated with normal turgor. Negative Stemmer sign second digit. No pedal edema noted. There is an ulceration noted subfifth metatarsal head with fibrogranular tissue in the wound bed. No malodor, no purulent drainage noted, no palpable fluctuance/bogginess noted, no visible abscess formation. Musculoskeletal: Muscle strength 5 of 5 age-appropriate. There is decreased range of motion of the first metatarsophalangeal joint without pain or crepitus. There is decreased range of motion of the ankle joint in dorsiflexion with knee extended without pain or crepitus. Left lower extremity BKA with prosthesis Skin no rashes or lesions noted, skin turgor normal and no jaundice Neuro moves all extremities Debridement Note Debridement Note Wound debrided: Subfifth metatarsal head right foot Laterality: Right Wound Grade/Stage: Nance stage I Type of Debridement: Excisional debridement Anesthesia Used: 5% Lidocaine Gel Depth: Down to and including healthy tissue and in the subcutaneous layer Percentage of wound debrided: 100 Instrument Used: 5mm curette and #15 blade Tissue Removed: Fibrous, devitalized subcutaneous, biofilm, slough Severity: Fat Layer Exposed Amount of bleeding with debridement: Mild Bleeding Controlled with: Compression and gauze Patient tolerated procedure: Patient tolerated procedure well Post-Debridement Measurements and Additional Note: Post-Debridement Measurements/Treatment ELA - Nurse 1 - General Ulcer Assessment Start: 12/07/23 10:10 Freq: Status: Active Protocol: CHARO Activity Type Activity Date Activity User E-sign Co-sign Detail Recorded Client Recorded Date Recorded By Document 12/07/23 10:11 MT Desktop 12/07/23 10:14 MT Document 12/14/23 08:26 GM Desktop 12/14/23 08:35 GM Document 12/21/23 09:14 ML Desktop 12/21/23 09:18 ML Document 12/28/23 09:21 DL Desktop 12/28/23 09:27 DL 12/07/23 12/14/23 12/21/23 10:11 08:26 09:14 WC - Today's Visit Information Type of service Follow-up Visit Follow-up Visit Follow-up Visit (Physician/MOTION PICTURE PROJECTIONIST APPRENTICE (Physician/MOTION PICTURE PROJECTIONIST APPRENTICE (Physician/MOTION PICTURE PROJECTIONIST APPRENTICE ) ) ) Arrival Mode Ambulatory Wheelchair Wheelchair Transfer Assistance None None Accompanied by Patient Identification Verified (Name & Yes Yes Yes ) Patient Requires Transmission-Based No Precautions Safety Precautions Fall Prevention Height and Weight Body Mass Index (BMI) 28.8 28.8 28.8 BMI Classification Overweight Overweight Overweight Vital Signs Temperature (97.8 F-99.1 F) 97 F L 97.6 F L Temperature Source Temporal Temporal Pulse Rate (60-100) 85 95 89 Pulse Location Monitor Monitor Monitor Respiratory Rate (12-18) 18 16 14 Respiratory rate source Observation Observation Observation Oxygen Delivery Method Room Air Room Air Blood Pressure (90/60-120/80) 160/77 H 147/81 H 140/81 H Blood Pressure Mean (mm Hg) 104 103 100 Source Monitor Monitor Monitor Position Sitting Sitting Sitting Blood Pressure Location Left Arm Right Arm Left Arm History Since Last Visit- (Skip if this is Patient's initial visit) Have you changed medications since your No No last visit? Any new allergies or adverse reactions No No Had a fall/change in ADL's that may No No increase risk of falls Signs or symptoms of abuse and/or No neglect since last visit Have you been in the hospital since your No No last visit? Has dressing in place as prescribed Yes Yes Has compression in place as prescribed N/A N/A Yes Has offloadiing in place as prescribed N/A Yes Yes Experienced any changes in pain level or No No management Left Footwear Regular Shoe Surgical Shoe with pressure relief insole Right Footwear Regular Shoe Pain Scale: 0-10 Numeric Is Patient Pain Free? Yes Yes Yes 12/28/23 09:21 WC - Today's Visit Information Type of service Follow-up Visit (Physician/MOTION PICTURE PROJECTIONIST APPRENTICE ) Arrival Mode Ambulatory, Wheelchair Transfer Assistance None Accompanied by Patient Identification Verified (Name & Yes ) Patient Requires Transmission-Based No Precautions Safety Precautions Height and Weight Body Mass Index (BMI) 28.8 BMI Classification Overweight Vital Signs Temperature (97.8 F-99.1 F) 98.7 F Temperature Source Temporal Pulse Rate (60-100) 93 Pulse Location Monitor Respiratory Rate (12-18) 18 Respiratory rate source Observation Oxygen Delivery Method Blood Pressure (90/60-120/80) 139/83 H Blood Pressure Mean (mm Hg) 101 Source Monitor Position Blood Pressure Location History Since Last Visit- (Skip if this is Patient's initial visit) Have you changed medications since your No last visit? Any new allergies or adverse reactions No Had a fall/change in ADL's that may No increase risk of falls Signs or symptoms of abuse and/or No neglect since last visit Have you been in the hospital since your No last visit? Has dressing in place as prescribed Yes Has compression in place as prescribed Yes Has offloadiing in place as prescribed Yes Experienced any changes in pain level or No management Left Footwear Right Footwear Pain Scale: 0-10 Numeric Is Patient Pain Free? Yes WC - Nurse 1 - General Ulcer Measurement Start: 12/07/23 10:10 Freq: Status: Active Protocol: Activity Type Activity Date Activity User E-sign Co-sign Detail Recorded Client Recorded Date Recorded By Document 12/07/23 10:11 MT Desktop 12/07/23 10:14 MT Document 12/14/23 08:26 GM Desktop 12/14/23 08:35 GM Document 12/21/23 09:14 ML Desktop 12/21/23 09:18 ML Document 12/28/23 09:21 DL Desktop 12/28/23 09:27 DL 12/07/23 12/14/23 12/21/23 10:11 08:26 09:14 Wound Center Nurse 1 Right Lateral Plantar -Combined with other wound No -Current Size (cm) - Length 1.3 1 1 -Current Size (cm) - Width 1.3 0.8 1 -Current Size (cm) - Depth 0.1 0.2 0.2 -Total Square Cm 1.69 0.8 1 -Date of Last Picture (Recall this 12/14/23 field) -Photo Taken No Yes No -Epithelialization Small 1-33% Medium 34-66% -Tunneling No No -Undermining/Tunneling No No -Circular Undermining No No -Exudate Amt Small Medium Medium -Exudate Type Serosanguineous Serosanguineous Serosanguineous -Wound Margin Flat & Intact Distinct, Distinct, Outline Outline Attached Attached -Granulation Amt Large (67-100%) Large (67-100%) Medium (34-66%) -Granulation Quality Pale,[place] Red -Slough/Fibrin Yes -Necrosis Amt None Present (0 Small (1-33%) Medium (34-66%) %) -Necrotic Tissue Type Adherent Slough Adherent Slough -Structure Exposed -Texture (Monique-wound Skin Appearance) Assessed Assessed,Callus No Abnormality ,Scarring -Moisture (Monique-wound Skin Appearance) Assessed Assessed,Dry/ No Abnormality Scaly -Color (Monique-wound Skin Appearance) Assessed No Abnormality No Abnormality -Temperature (Monique-wound Skin No Abnormality No Abnormality No Abnormality Appearance) (Pt Warm) (Pt Warm) (Pt Warm) -Tenderness on Palpation (Monique-wound No No Skin Appearance) -Ulcer Cleansing Rinsed/ Rinsed/ Irrigated with Irrigated with Saline Saline -Foul Odor after Cleansing No No -Anesthetic Used 5% Lidocaine 5% Lidocaine 5% Lidocaine Gel Gel Gel -Wound Comment(s) Lower Limb Edema Present NA 12/28/23 09:21 Wound Center Nurse 1 Right Lateral Plantar -Combined with other wound -Current Size (cm) - Length 0.1 -Current Size (cm) - Width 0.1 -Current Size (cm) - Depth 0.1 -Total Square Cm 0.01 -Date of Last Picture (Recall this field) -Photo Taken -Epithelialization -Tunneling -Undermining/Tunneling -Circular Undermining -Exudate Amt None Present -Exudate Type -Wound Margin Distinct, Outline Attached -Granulation Amt None Present (0 %) -Granulation Quality -Slough/Fibrin -Necrosis Amt None Present (0 %) -Necrotic Tissue Type -Structure Exposed N/A -Texture (Monique-wound Skin Appearance) Scarring -Moisture (Monique-wound Skin Appearance) No Abnormality -Color (Monique-wound Skin Appearance) No Abnormality -Temperature (Monique-wound Skin No Abnormality Appearance) (Pt Warm) -Tenderness on Palpation (Monique-wound No Skin Appearance) -Ulcer Cleansing Soap and Water -Foul Odor after Cleansing No -Anesthetic Used 5% Lidocaine Gel -Wound Comment(s) epifix intact Lower Limb Edema Present WC - Nurse 2 - General Ulcer CM Notes Start: 12/07/23 10:10 Freq: Status: Active Protocol: Activity Type Activity Date Activity User E-sign Co-sign Detail Recorded Client Recorded Date Recorded By Document 12/07/23 10:49 [place] Desktop 12/07/23 10:56 [facility] Document 12/14/23 08:58 [facility] Desktop 12/14/23 09:04 BM Document 12/21/23 09:24 [facility] Desktop 12/21/23 09:28 [facility] Document 12/28/23 09:35 [facility] Desktop 12/28/23 09:41 F 12/07/23 12/14/23 12/21/23 10:49 08:58 09:24 Wound Center Nurse 2 Right Lateral Plantar -Time 10:50 08:58 09:25 -Correct Patient Yes Yes Yes -Correct Side, Site, Position Yes Yes Yes -Correct Procedure Yes Yes Yes -Procedure Performed Yes Yes Yes -Type of Procedure Debridement Debridement Debridement -Clinical Debridement Subcutaneous Subcutaneous Subcutaneous -Tissue Removed Subcutaneous Subcutaneous Subcutaneous -Post Debridement (cm) - Length 1.1 1.1 0.9 -Post Debridement (cm) - Width 1.3 0.9 0.7 -Post Debridement (cm) - Depth 0.1 0.1 0.1 -Total Square (Post) (cm) 1.43 0.99 0.63 -Area of Debridement (cm) - Length 1.1 1.1 0.9 -Area of Debridement (cm) - Width 1.3 0.9 0.7 -Total Square (Area) (cm) 1.43 0.99 0.63 -Tunneling No No No -Undermining/Tunneling No No No -Circular Undermining No No No -Wound/Ulcer Outcome Not Healed Not Healed Not Healed -Ulcer Cleansing Rinsed/ Rinsed/ Rinsed/ Irrigated with Irrigated with Irrigated with Saline Saline Saline -Foul Odor after Cleansing No No No -Bioengineered Tissue No Yes Yes -Type of Bioengineered Tissue Epifix 18mm Epifix 18mm Disc Disc -Expiration Date 07/05/28 07/05/28 -Product Lot Number [id number] -Percent Used 100 100 -Lot number of Saline Used [id number] -Bleeding Controlled with Pressure Pressure Pressure -Treatment Response Procedure Procedure Procedure Tolerated Well Tolerated Well Tolerated Well -Offloading Yes Yes Yes -Type of Offloading Surgical Shoe Surgical Shoe Surgical Shoe -Other Type of Offloading offloading pad -Debridement - Subq, 1st 20sq cm Yes No No -Apply Skin Sub - 1st 25 sq cm - Feet 1 1 -Epifix 18mm Disc 3 3 Pain Scale: 0-10 Numeric Is Patient Pain Free? Yes Yes Yes 12/28/23 09:35 Wound Center Nurse 2 Right Lateral Plantar -Time 09:35 -Correct Patient Yes -Correct Side, Site, Position Yes -Correct Procedure Yes -Procedure Performed Yes -Type of Procedure Debridement -Clinical Debridement Subcutaneous -Tissue Removed Subcutaneous -Post Debridement (cm) - Length -Post Debridement (cm) - Width -Post Debridement (cm) - Depth -Total Square (Post) (cm) -Area of Debridement (cm) - Length -Area of Debridement (cm) - Width -Total Square (Area) (cm) -Tunneling No -Undermining/Tunneling No -Circular Undermining No -Wound/Ulcer Outcome Not Healed -Ulcer Cleansing Rinsed/ Irrigated with Saline -Foul Odor after Cleansing No -Bioengineered Tissue Yes -Type of Bioengineered Tissue Epifix 18mm Disc -Expiration Date -Product Lot Number -Percent Used 100 -Lot number of Saline Used [id number] -Bleeding Controlled with Pressure -Treatment Response Procedure Tolerated Well -Offloading Yes -Type of Offloading Surgical Shoe -Other Type of Offloading -Debridement - Subq, 1st 20sq cm No -Apply Skin Sub - 1st 25 sq cm - Feet 1 -Epifix 18mm Disc 3 Pain Scale: 0-10 Numeric Is Patient Pain Free? Yes - Nurse 3 - General Ulcer D/C NN Start: 12/07/23 10:10 Freq: Status: Active Protocol: Activity Type Activity Date Activity User E-sign Co-sign Detail Recorded Client Recorded Date Recorded By Document 12/07/23 11:09 MT Desktop 12/07/23 11:10 MT Document 12/14/23 09:20 KW Desktop 12/14/23 09:20 KW Document 12/21/23 09:43 ML Desktop 12/21/23 09:44 ML Document 12/28/23 09:47 KW Desktop 12/28/23 09:47 KW 12/07/23 12/14/23 12/21/23 11:09 09:20 09:43 Wound Care Center Nurse 3 Right Lateral Plantar -Primary Dressing Applied Mepilex Border -Primary Dressing Covered/Secured with Dry Gauze, Dry Gauze & Secured with Roll Gauze, Tape Secured with Tape -Mepilex Border 1 Right -Compression Wrap Cristobal Wrap Cristobal Wrap Pain Scale: 0-10 Numeric Is Patient Pain Free? Yes Yes Yes WC - Visit Discharge Discharge Condition Stable Stable Ambulatory Status Wheelchair Wheelchair Transportation Private Auto Accompanied by Medication Reconcilliation completed & No provided to patient/care provider Clinical Summary of Care Provided Yes Yes 12/28/23 09:47 Wound Care Center Nurse 3 Right Lateral Plantar -Primary Dressing Applied -Primary Dressing Covered/Secured with Dry Gauze & Roll Gauze, Secured with Tape -Mepilex Border Right -Compression Wrap Cristobal Wrap Pain Scale: 0-10 Numeric Is Patient Pain Free? Yes WC - Visit Discharge Discharge Condition Stable Ambulatory Status Ambulatory Transportation Private Auto Accompanied by Medication Reconcilliation completed & No provided to patient/care provider Clinical Summary of Care Provided Yes Assessment/Plan Assessment/Plan (1) Non-pressure chronic ulcer of other part of right foot with fat layer exposed: CODE(S): L97.512 - Non-pressure chronic ulcer of other part of right foot with fat layer exposed (2) Diabetes mellitus with diabetic polyneuropathy: CODE(S): E11.42 - Type 2 diabetes mellitus with diabetic polyneuropathy (3) Type 2 diabetes mellitus with foot ulcer: CODE(S): E11.621 - Type 2 diabetes mellitus with foot ulcer; L97.509 - Non-pressure chronic ulcer of other part of unspecified foot with unspecified severity (4) Acquired absence of left leg below knee: CODE(S): Z89.512 - Acquired absence of left leg below knee (5) Hypertension: CODE(S): I10 - Essential (primary) hypertension (6) History of colon cancer: CODE(S): Z85.038 - Personal history of other malignant neoplasm of large intestine (7) Hypercholesterolemia: CODE(S): E78.00 - Pure hypercholesterolemia, unspecified PLAN: Plan Patient seen and evaluated Ulceration debrided as noted in the clinical panel above. Ulceration subfifth metatarsal head measures 0.6 cm x 0.7 cm x 0.1 cm. No signs of infection. EpiFix graft #3 was applied to the wound base and dressed with Adaptic touch and anchored with Steri-Strips. Foot then dressed with dry sterile dressing and Cristobal wrap. Patient was then offloaded in surgical shoe with fifth metatarsal head cut out to reduce pressure at ulcerative site. Discussed he is to not get the dressing wet. Recommended cast bag covering when showering. Discussed he may change outer dressing as needed. Ulceration does demonstrate continued reduction in size versus previous visit. Overall healing well. Discussed continued offloading with the surgical shoe with the fifth metatarsal head cut out. He also uses wheelchair to navigate in house so that he tries to keep pressure off the foot. Does have left lower extremity BKA with prosthesis. He has finished oral antibiotic to completion. Per PCP completed clindamycin 150 mg 3 times daily x 10 days and ciprofloxacin 500 mg twice daily x 10 days. Antibiotic stop date was 12/03/2023. He has been approved for advanced wound care product, EpiFix. Will continue to apply. Discussed adequate protein intake to aid in wound healing. Darrius supplementation was also recommended. Discussed proper diabetic diet to aim for tight glycemic control. He does report good standing with his A1c per his PCP. Discussed not ambulating barefoot as he does have significant diabetic peripheral polyneuropathy. Discussed that socks do include barefoot. Encouraged shoe gear to be worn at all times. Discussed importance of daily foot checks and pain close examination for suspicious lesions, cuts, wounds, pressure sores and that if he does notice any of these he is to report to PCP or call our office for further evaluation. Discussed signs and symptoms of infection today. Discussed if he has increasing redness about the wound site that moves up the leg, purulent drainage from the wound site, increasing foul odor from the wound, or if he experiences fever greater than 101 degree accompanied by nausea, vomiting, chills that these are signs of a progressing infection and he should report to the ED for IV antibiotics and further evaluation. He and his both voiced understanding of this today. The following work up and care recommendations were made: Dressing: EpiFix, Adaptic touch, Steri-Strips, dry sterile dressing with Cristobal wrap compression. May change outer dressing as needed. Wash: Do not get wet Tissue growth optimization: EpiFix Offload: Continue to offload in surgical shoe with fifth metatarsal head cut out Vascular: Palpable pedal pulses, vascular status not impacting healing Edema: No edema noted Infection: No signs of infection. Patient currently finishing oral antibiotics with improving localized cellulitis. Discussed finishing antibiotics as stated above to completion. Pain: May take [id number] Tylenol for discomfort. Patient does have significant diabetic peripheral polyneuropathy. Host factors: Diabetes mellitus type 2 with peripheral polyneuropathy, history of previous ulceration/infection with BKA left lower extremity. I answered all the patient's questions. To return to the wound healing center in 1 week or call sooner if the patient has any questions or concerns.
== END 2024-01-02 23:59 | disposition home or self-care (01) ==
LOC: WC 09:15
PROVIDERS: PCP Family Medicine; Visit Provider Student in an Organized Health Care Education/Training Program
DX: E11.621 Type 2 diabetes mellitus with foot ulcer (principal); L97.412 Non-pressure chronic ulcer of right heel and midfoot with fat layer exposed; Z89.512 Acquired absence of left leg below knee; E11.42 Type 2 diabetes mellitus with diabetic polyneuropathy; I10 Essential (primary) hypertension; E78.00 Pure hypercholesterolemia, unspecified; Z79.84 Long term (current) use of oral hypoglycemic drugs; Z79.899 Other long term (current) drug therapy; Z85.038 Personal history of other malignant neoplasm of large intestine
CPT/HCPCS: 11042; 15275; Q4186

== ENCOUNTER 2024-01-11 08:30 | Outpatient (RCR) | payer MEDICARE, SELFPAY ==
[2024-01-03 00:52] VITALS: BP 139/83; PULSE 93; RESP 18; TEMP 37.1; BMI 28.8
[2024-01-04 08:30] VITALS: BP 146/84; PULSE 89; TEMP 36.3; BMI 28.8
--- NOTE | 2024-01-04 09:28 | PCM.WC.PN ---
History of Present Illness Date of Service: 01/04/24 Chief Complaint: Right foot ulceration History of Wound: Patient is a 63-year-old male who presents to the wound care center today for ulceration subfifth metatarsal head of the right foot. He states that the ulcer has been present for about a day or two prior to his visit to the family physician on 11/23/2023. He stated he noticed some swelling on the right foot and does admit to neuropathy and does not feel anything in his feet. His noted that he had an ulcer on the bottom of the foot near the fifth metatarsal head and did clean it with peroxide and placed Neosporin and a Band-Aid on it. He states that the family doctor did take cultures due to the surrounding cellulitis which was also delineated by skin markings. He was empirically started on clindamycin 150 mg 3 times daily and Cipro 500 mg twice daily. Patient reports antibiotics are improving the redness of the foot and he states he feels well overall. He was referred to the wound care center for continued follow-up and healing of the ulceration of the right foot. 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 He denies N/V/F/chills. Denies further complaints. Subjective Subjective This is a 63-year-old male who presents to the wound care center for follow-up of a plantar fifth metatarsal head ulceration of the right foot. He is left grafting product in place and states he has not needed to change the outer dressing. States overall he feels well. He is continuing to trying to stay off his foot as much as he can. Continues Darrius supplement for healing. Denies constitutional symptoms. Denies further complaints. Objective Data Objective Data Vital Signs: Vital Signs Temp Pulse Resp BP 97.3 F L 89 18 146/84 H 01/04/24 08:30 01/04/24 08:30 01/03/24 00:52 01/04/24 08:30 Weight: 96.615 kg Body Mass Index (BMI) 28.8 Physical Exam Const alert, oriented x3 and no apparent distress General Appearance: cooperative HEENT normocephalic Eyes General Eye: normal appearance of both eyes Neck General: normal visual inspection Lymph Lymphatic: no lymphadenopathy noted and no lymphedema noted Resp normal respiratory effort Cardio regular rate and regular rhythm Extremity normal capillary refill, no calf tenderness and no pedal edema Extremity Narrative: Right lower extremity: Vascular: DP and PT pulses palpable. Capillary fill time less than 5 seconds to digits. Normal temperature gradient. Hair growth is diminished to the foot. Neurological: Light touch sensation diminished. Gross sensation intact. Protective sensation is absent to the foot consistent with diabetic peripheral polyneuropathy. Dermatologic: Skin appears well-hydrated with normal turgor. Negative Stemmer sign second digit. No pedal edema noted. There is an ulceration noted subfifth metatarsal head with epithelization across wound bed. No malodor, no purulent drainage noted, no palpable fluctuance/bogginess noted, no visible abscess formation. Musculoskeletal: Muscle strength 5 of 5 age-appropriate. There is decreased range of motion of the first metatarsophalangeal joint without pain or crepitus. There is decreased range of motion of the ankle joint in dorsiflexion with knee extended without pain or crepitus. Left lower extremity BKA with prosthesis Skin no rashes or lesions noted, skin turgor normal and no jaundice Neuro moves all extremities Debridement Note Debridement Note Wound debrided: Subfifth metatarsal right foot Laterality: Right Wound Grade/Stage: Nance stage I Type of Debridement: Excisional debridement Anesthesia Used: 5% Lidocaine Gel Depth: Down to and including healthy tissue and in the subcutaneous layer Percentage of wound debrided: 100 Instrument Used: #15 blade Tissue Removed: Fibrous, devitalized subcutaneous, biofilm, slough Severity: Fat Layer Exposed Amount of bleeding with debridement: Mild Bleeding Controlled with: Compression and gauze Patient tolerated procedure: Patient tolerated procedure well Post-Debridement Measurements and Additional Note: Post-Debridement Measurements/Treatment - Nurse 1 - General Ulcer Assessment Start: 01/04/24 08:30 Freq: Status: Active Protocol: ELA.[email or web address] Activity Type Activity Date Activity User E-sign Co-sign Detail Recorded Client Recorded Date Recorded By Document 01/04/24 08:30 DS Desktop 01/04/24 08:34 DS 01/04/24 08:30 - Today's Visit Information Type of service Follow-up Visit (Physician/ADMINISTRATIVE SERVICES COORDINATOR ) Arrival Mode Wheelchair Safety Precautions NA Height and Weight Body Mass Index (BMI) 28.8 BMI Classification Overweight Vital Signs Temperature (97.8 F-99.1 F) 97.3 F L Temperature Source Temporal Pulse Rate (60-100) 89 Pulse Location Monitor Blood Pressure (90/60-120/80) 146/84 H Blood Pressure Mean (mm Hg) 104 Source Monitor Position Sitting Blood Pressure Location Left Arm History Since Last Visit- (Skip if this is Patient's initial visit) Have you changed medications since your No last visit? Any new allergies or adverse reactions No Had a fall/change in ADL's that may No increase risk of falls Signs or symptoms of abuse and/or No neglect since last visit Have you been in the hospital since your No last visit? Has dressing in place as prescribed Yes Has compression in place as prescribed N/A Experienced any changes in pain level or No management Left Footwear Other Footwear (Comment) Right Footwear Surgical Shoe with pressure relief insole Other Footwear reg shoe on prosthtic Pain Scale: 0-10 Numeric Is Patient Pain Free? No WC - Nurse 1 - General Ulcer Measurement Start: 01/04/24 08:30 Freq: Status: Active Protocol: Activity Type Activity Date Activity User E-sign Co-sign Detail Recorded Client Recorded Date Recorded By Document 01/04/24 08:30 DS Desktop 01/04/24 08:34 DS 01/04/24 08:30 Wound Center Nurse 1 Right Lateral Plantar -Current Size (cm) - Length 0.1 -Current Size (cm) - Width 0.1 -Current Size (cm) - Depth 0.1 -Total Square Cm 0.01 -Photo Taken No -Texture (Monique-wound Skin Appearance) Assessed,Callus -Moisture (Monique-wound Skin Appearance) Assessed,Dry/ Scaly -Color (Monique-wound Skin Appearance) Assessed -Temperature (Monique-wound Skin No Abnormality Appearance) (Pt Warm) -Tenderness on Palpation (Monique-wound No Skin Appearance) -Ulcer Cleansing Soap and Water -Foul Odor after Cleansing No -Anesthetic Used 5% Lidocaine Gel -Wound Comment(s) scabbed area to right planter WC - Nurse 2 - General Ulcer CM Notes Start: 01/04/24 08:30 Freq: Status: Active Protocol: Activity Type Activity Date Activity User E-sign Co-sign Detail Recorded Client Recorded Date Recorded By Document 01/04/24 08:54 [facility] Desktop 01/04/24 09:01 [facility] 01/04/24 08:54 Wound Center Nurse 2 -Time 08:54 -Correct Patient Yes -Correct Side, Site, Position Yes -Correct Procedure Yes -Procedure Performed Yes -Type of Procedure Debridement -Clinical Debridement Subcutaneous -Tissue Removed Subcutaneous -Post Debridement (cm) - Length 0.1 -Post Debridement (cm) - Width 0.1 -Post Debridement (cm) - Depth 0.1 -Total Square (Post) (cm) 0.01 -Area of Debridement (cm) - Length 0.1 -Area of Debridement (cm) - Width 0.1 -Total Square (Area) (cm) 0.01 -Tunneling No -Undermining/Tunneling No -Circular Undermining No -Wound/Ulcer Outcome Not Healed -Ulcer Cleansing Rinsed/ Irrigated with Saline -Foul Odor after Cleansing No -Bioengineered Tissue No -Bleeding Controlled with Pressure -Treatment Response Procedure Tolerated Well -Debridement - Subq, 1st 20sq cm Yes Pain Scale: 0-10 Numeric Is Patient Pain Free? Yes - Nurse 3 - General Ulcer D/C NN Start: 01/04/24 08:30 Freq: Status: Active Protocol: Activity Type Activity Date Activity User E-sign Co-sign Detail Recorded Client Recorded Date Recorded By Document 01/04/24 09:05 KW Desktop 01/04/24 09:11 KW 01/04/24 09:05 Wound Care Center Nurse 3 Right Lateral Plantar -Primary Dressing Covered/Secured with Dry Gauze & Roll Gauze, Secured with Tape Right -Compression Wrap Cristobal Wrap Pain Scale: 0-10 Numeric Is Patient Pain Free? Yes WC - Visit Discharge Discharge Condition Stable Ambulatory Status Wheelchair Transportation Private Auto Medication Reconcilliation completed & No provided to patient/care provider Clinical Summary of Care Provided Yes Assessment/Plan Assessment/Plan (1) Non-pressure chronic ulcer of other part of right foot with fat layer exposed: CODE(S): L97.512 - Non-pressure chronic ulcer of other part of right foot with fat layer exposed (2) Diabetes mellitus with diabetic polyneuropathy: CODE(S): E11.42 - Type 2 diabetes mellitus with diabetic polyneuropathy (3) Type 2 diabetes mellitus with foot ulcer: CODE(S): E11.621 - Type 2 diabetes mellitus with foot ulcer; L97.509 - Non-pressure chronic ulcer of other part of unspecified foot with unspecified severity (4) Acquired absence of left leg below knee: CODE(S): Z89.512 - Acquired absence of left leg below knee (5) Hypertension: CODE(S): I10 - Essential (primary) hypertension PLAN: Plan Patient seen and evaluated Ulceration debrided as noted in the clinical panel above. Ulceration subfifth metatarsal head measures 0.1 cm x 0.1 cm x 0.1 cm. No signs of infection. EpiFix graft #3 was applied to the wound base at previous visit on 12/28/23. We will currently refrain from application as he has fully epithelized across the wound bed. Foot then dressed with dry sterile dressing to pad and protect and Cristobal wrap. Patient was then offloaded in surgical shoe with fifth metatarsal head cut out to reduce pressure at ulcerative site. He is to change dressing daily to pad and protect area for next 7 to 10 days. Ulceration does demonstrate continued reduction in size versus previous visit. Overall healing well with full epithelialization across the wound bed. Discussed continued offloading with the surgical shoe with the fifth metatarsal head cut out. He also uses wheelchair to navigate in house so that he tries to keep pressure off the foot. Does have left lower extremity BKA with prosthesis. He has finished oral antibiotic to completion. Per PCP completed clindamycin 150 mg 3 times daily x 10 days and ciprofloxacin 500 mg twice daily x 10 days. Antibiotic stop date was 12/03/2023. He has been approved for advanced wound care product, EpiFix. Will continue to apply. Discussed adequate protein intake to aid in wound healing. Darrius supplementation was also recommended. Discussed proper diabetic diet to aim for tight glycemic control. He does report good standing with his A1c per his PCP. Discussed not ambulating barefoot as he does have significant diabetic peripheral polyneuropathy. Discussed that socks do include barefoot. Encouraged shoe gear to be worn at all times. Discussed importance of daily foot checks and pain close examination for suspicious lesions, cuts, wounds, pressure sores and that if he does notice any of these he is to report to PCP or call our office for further evaluation. Discussed signs and symptoms of infection today. Discussed if he has increasing redness about the wound site that moves up the leg, purulent drainage from the wound site, increasing foul odor from the wound, or if he experiences fever greater than 101 degree accompanied by nausea, vomiting, chills that these are signs of a progressing infection and he should report to the ED for IV antibiotics and further evaluation. He and his both voiced understanding of this today. The following work up and care recommendations were made: Dressing: Dry sterile dressing to pad and protect for the next 7 to 10 days. He is to change dressing daily. Wash: Soap and water Tissue growth optimization: None Offload: Continue to offload in surgical shoe with fifth metatarsal head cut out Vascular: Palpable pedal pulses, vascular status not impacting healing Edema: No edema noted Infection: No signs of infection. Patient currently finishing oral antibiotics with improving localized cellulitis. Discussed finishing antibiotics as stated above to completion. Pain: May take [id number] Tylenol for discomfort. Patient does have significant diabetic peripheral polyneuropathy. Host factors: Diabetes mellitus type 2 with peripheral polyneuropathy, history of previous ulceration/infection with BKA left lower extremity. I answered all the patient's questions. To return to the wound healing center in 1 week or call sooner if the patient has any questions or concerns.
[2024-01-11 08:24] VITALS: BP 143/93; PULSE 87; RESP 18; TEMP 36.3; BMI 28.8
--- NOTE | 2024-01-11 09:40 | PCM.WC.PN ---
History of Present Illness Date of Service: 01/11/24 Chief Complaint: Right foot ulceration History of Wound: Patient is a 63-year-old male who presents to the wound care center today for ulceration subfifth metatarsal head of the right foot. He states that the ulcer has been present for about a day or two prior to his visit to the family physician on 11/23/2023. He stated he noticed some swelling on the right foot and does admit to neuropathy and does not feel anything in his feet. His noted that he had an ulcer on the bottom of the foot near the fifth metatarsal head and did clean it with peroxide and placed Neosporin and a Band-Aid on it. He states that the family doctor did take cultures due to the surrounding cellulitis which was also delineated by skin markings. He was empirically started on clindamycin 150 mg 3 times daily and Cipro 500 mg twice daily. Patient reports antibiotics are improving the redness of the foot and he states he feels well overall. He was referred to the wound care center for continued follow-up and healing of the ulceration of the right foot. 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 He denies N/V/F/chills. Denies further complaints. Subjective Subjective This is a 63-year-old male who presents to the wound care center for follow-up of a plantar fifth metatarsal head ulceration of the right foot. He continues to apply protective dressing to the foot. States overall he feels well. He is continuing to trying to stay off his foot as much as he can. Continues Darrius supplement for healing. believes the wound has healed. Denies constitutional symptoms. Denies further complaints. Objective Data Objective Data Vital Signs: Vital Signs Temp Pulse Resp BP 97.3 F L 87 18 143/93 H 01/11/24 08:24 01/11/24 08:24 01/11/24 08:24 01/11/24 08:24 Weight: 96.615 kg Body Mass Index (BMI) 28.8 Physical Exam Const alert, oriented x3 and no apparent distress General Appearance: cooperative HEENT normocephalic Eyes General Eye: normal appearance of both eyes Neck General: normal visual inspection Lymph Lymphatic: no lymphadenopathy noted and no lymphedema noted Resp normal respiratory effort Cardio regular rate and regular rhythm Extremity normal capillary refill, no calf tenderness and no pedal edema Extremity Narrative: Right lower extremity: Vascular: DP and PT pulses palpable. Capillary fill time less than 5 seconds to digits. Normal temperature gradient. Hair growth is diminished to the foot. Neurological: Light touch sensation diminished. Gross sensation intact. Protective sensation is absent to the foot consistent with diabetic peripheral polyneuropathy. Dermatologic: Skin appears well-hydrated with normal turgor. Negative Stemmer sign second digit. No pedal edema noted. Ulceration noted subfifth metatarsal head has healed with epithelization. No malodor, no purulent drainage noted, no palpable fluctuance/bogginess noted, no visible abscess formation. Musculoskeletal: Muscle strength 5 of 5 age-appropriate. There is decreased range of motion of the first metatarsophalangeal joint without pain or crepitus. There is decreased range of motion of the ankle joint in dorsiflexion with knee extended without pain or crepitus. Left lower extremity BKA with prosthesis Skin no rashes or lesions noted, skin turgor normal and no jaundice Neuro moves all extremities Debridement Note Debridement Note No debridement was completed: No debridement was completed today Post-Debridement Measurements and Additional Note: Post-Debridement Measurements/Treatment - Nurse 1 - General Ulcer Assessment Start: 01/04/24 08:30 Freq: Status: Active Protocol: CHARO Activity Type Activity Date Activity User E-sign Co-sign Detail Recorded Client Recorded Date Recorded By Document 01/04/24 08:30 DS Desktop 01/04/24 08:34 DS Document 01/11/24 08:24 DL Desktop 01/11/24 08:31 DL 01/04/24 01/11/24 08:30 08:24 - Today's Visit Information Type of service Follow-up Visit Follow-up Visit (Physician/[facility] [employer] (Physician/[facility] ) ) Arrival Mode Wheelchair Ambulatory, Wheelchair Transfer Assistance None Patient Identification Verified (Name & Yes ) Patient Requires Transmission-Based No Precautions Safety Precautions NA Height and Weight Body Mass Index (BMI) 28.8 28.8 BMI Classification Overweight Overweight Vital Signs Temperature (97.8 F-99.1 F) 97.3 F L 97.3 F L Temperature Source Temporal Temporal Pulse Rate (60-100) 89 87 Pulse Location Monitor Monitor Respiratory Rate (12-18) 18 Respiratory rate source Observation Blood Pressure (90/60-120/80) 146/84 H 143/93 H Blood Pressure Mean (mm Hg) 104 109 Source Monitor Monitor Position Sitting Blood Pressure Location Left Arm History Since Last Visit- (Skip if this is Patient's initial visit) Have you changed medications since your No No last visit? Any new allergies or adverse reactions No No Had a fall/change in ADL's that may No No increase risk of falls Signs or symptoms of abuse and/or No No neglect since last visit Have you been in the hospital since your No No last visit? Has dressing in place as prescribed Yes Yes Has compression in place as prescribed N/A N/A Has offloadiing in place as prescribed Yes Experienced any changes in pain level or No No management Left Footwear Other Footwear (Comment) Right Footwear Surgical Shoe with pressure relief insole Other Footwear reg shoe on prosthtic Pain Scale: 0-10 Numeric Is Patient Pain Free? No Yes WC - Nurse 1 - General Ulcer Measurement Start: 01/04/24 08:30 Freq: Status: Active Protocol: Activity Type Activity Date Activity User E-sign Co-sign Detail Recorded Client Recorded Date Recorded By Document 01/04/24 08:30 DS Desktop 01/04/24 08:34 DS Document 01/11/24 08:24 DL Desktop 01/11/24 08:31 DL 01/04/24 01/11/24 08:30 08:24 Wound Center Nurse 1 Right Lateral Plantar -Current Size (cm) - Length 0.1 0.1 -Current Size (cm) - Width 0.1 0.1 -Current Size (cm) - Depth 0.1 0.1 -Total Square Cm 0.01 0.01 -Photo Taken No Yes -Exudate Amt None Present -Wound Margin Thickened -Granulation Amt Large (67-100%) -Granulation Quality Pale -Necrosis Amt None Present (0 %) -Structure Exposed N/A -Texture (Monique-wound Skin Appearance) Assessed,Callus Callus -Moisture (Monique-wound Skin Appearance) Assessed,Dry/ No Abnormality Scaly -Color (Monique-wound Skin Appearance) Assessed No Abnormality -Temperature (Monique-wound Skin No Abnormality No Abnormality Appearance) (Pt Warm) (Pt Warm) -Tenderness on Palpation (Monique-wound No Skin Appearance) -Ulcer Cleansing Soap and Water Rinsed/ Irrigated with Saline -Foul Odor after Cleansing No No -Anesthetic Used 5% Lidocaine 5% Lidocaine Gel Gel -Wound Comment(s) scabbed area to right planter WC - Nurse 2 - General Ulcer CM Notes Start: 01/04/24 08:30 Freq: Status: Active Protocol: Activity Type Activity Date Activity User E-sign Co-sign Detail Recorded Client Recorded Date Recorded By Document 01/04/24 08:54 BMF Desktop 01/04/24 09:01 BMF Document 01/11/24 08:47 DS Desktop 01/11/24 08:49 DS 01/04/24 01/11/24 08:54 08:47 Wound Center Nurse 2 Right Lateral Plantar -Time 08:54 -Correct Patient Yes -Correct Side, Site, Position Yes -Correct Procedure Yes -Procedure Performed Yes -Type of Procedure Debridement -Clinical Debridement Subcutaneous -Tissue Removed Subcutaneous -Post Debridement (cm) - Length 0.1 0 -Post Debridement (cm) - Width 0.1 0 -Post Debridement (cm) - Depth 0.1 0 -Total Square (Post) (cm) 0.01 0 -Area of Debridement (cm) - Length 0.1 0 -Area of Debridement (cm) - Width 0.1 0 -Total Square (Area) (cm) 0.01 0 -Tunneling No -Undermining/Tunneling No -Circular Undermining No -Wound/Ulcer Outcome Not Healed Healed- Epithelialized -Ulcer Cleansing Rinsed/ Irrigated with Saline -Foul Odor after Cleansing No -Bioengineered Tissue No -Bleeding Controlled with Pressure -Treatment Response Procedure Tolerated Well -Debridement - Subq, 1st 20sq cm Yes Pain Scale: 0-10 Numeric Is Patient Pain Free? Yes Yes WC - Nurse 3 - General Ulcer D/C NN Start: 01/04/24 08:30 Freq: Status: Active Protocol: Activity Type Activity Date Activity User E-sign Co-sign Detail Recorded Client Recorded Date Recorded By Document 01/04/24 09:05 KW Desktop 01/04/24 09:11 KW Document 01/11/24 08:46 DL Desktop 01/11/24 08:48 DL Document 01/11/24 09:02 DL Desktop 01/11/24 09:04 DL 01/04/24 01/11/24 01/11/24 09:05 08:46 09:02 Wound Care Center Nurse 3 Right Lateral Plantar -Ulcer Cleansing Rinsed/ Irrigated with Saline -Foul Odor after Cleansing No -Primary Dressing Applied Mepilex Border -Other Dressing epifix -Primary Dressing Covered/Secured with Dry Gauze & Roll Gauze, Secured with Tape -Other Covering compression -Mepilex Border 1 Right -Compression Wrap Cristobal Wrap -Stockings Yes Treatment Response Procedure Procedure Tolerated Well Tolerated Well Pain Scale: 0-10 Numeric Is Patient Pain Free? Yes Yes Yes WC - Visit Discharge Discharge Condition Stable Stable Stable Ambulatory Status Wheelchair Ambulatory Ambulatory Transportation Private Auto Private Auto Private Auto Medication Reconcilliation completed & No provided to patient/care provider Clinical Summary of Care Provided Yes Notes: healed/ discharged Assessment/Plan Assessment/Plan (1) Non-pressure chronic ulcer of other part of right foot with fat layer exposed: CODE(S): L97.512 - Non-pressure chronic ulcer of other part of right foot with fat layer exposed (2) Diabetes mellitus with diabetic polyneuropathy: CODE(S): E11.42 - Type 2 diabetes mellitus with diabetic polyneuropathy (3) Type 2 diabetes mellitus with foot ulcer: CODE(S): E11.621 - Type 2 diabetes mellitus with foot ulcer; L97.509 - Non-pressure chronic ulcer of other part of unspecified foot with unspecified severity (4) Acquired absence of left leg below knee: CODE(S): Z89.512 - Acquired absence of left leg below knee (5) Hypertension: CODE(S): I10 - Essential (primary) hypertension PLAN: Plan Patient seen and evaluated No debridement performed. Ulceration subfifth metatarsal has healed today. No signs of infection. EpiFix graft #3 was applied to the wound base at visit on 12/28/23. We will currently refrain from application as he has healed. Foot then dressed with dry sterile dressing to pad and protect and Cristobal wrap. Patient was then offloaded in diabetic shoe gear with fifth metatarsal head cut out to reduce pressure at ulcerative site. He is to continued to change dressing daily and pad and protect area for next 7 to 10 days. Ulceration has healed. Discussed continued offloading with the surgical shoe with the fifth metatarsal head cut out. He also uses wheelchair to navigate in house so that he tries to keep pressure off the foot. Does have left lower extremity BKA with prosthesis. He has finished oral antibiotic to completion. Per PCP completed clindamycin 150 mg 3 times daily x 10 days and ciprofloxacin 500 mg twice daily x 10 days. Antibiotic stop date was 12/03/2023. He has been approved for advanced wound care product, EpiFix. Discussed adequate protein intake to aid in wound healing. Darrius supplementation was also recommended. Discussed proper diabetic diet to aim for tight glycemic control. He does report good standing with his A1c per his PCP. Discussed not ambulating barefoot as he does have significant diabetic peripheral polyneuropathy. Discussed that socks do include barefoot. Encouraged shoe gear to be worn at all times. Discussed importance of daily foot checks and pain close examination for suspicious lesions, cuts, wounds, pressure sores and that if he does notice any of these he is to report to PCP or call our office for further evaluation. Discussed signs and symptoms of infection today. Discussed if he has increasing redness about the wound site that moves up the leg, purulent drainage from the wound site, increasing foul odor from the wound, or if he experiences fever greater than 101 degree accompanied by nausea, vomiting, chills that these are signs of a progressing infection and he should report to the ED for IV antibiotics and further evaluation. He and his both voiced understanding of this today. The following work up and care recommendations were made: Dressing: Dry sterile dressing to pad and protect for the next 7 to 10 days. He is to change dressing daily. Wash: Soap and water Tissue growth optimization: None Offload: Continue to offload in surgical shoe with fifth metatarsal head cut out Vascular: Palpable pedal pulses, vascular status not impacting healing Edema: No edema noted Infection: No signs of infection. Patient currently finishing oral antibiotics with improving localized cellulitis. Discussed finishing antibiotics as stated above to completion. Pain: May take [id number] Tylenol for discomfort. Patient does have significant diabetic peripheral polyneuropathy. Host factors: Diabetes mellitus type 2 with peripheral polyneuropathy, history of previous ulceration/infection with BKA left lower extremity. At this time he is being discharged from the wound care center today due to healed status. I answered all the patient's questions. To return to the wound healing center as needed or call sooner if the patient has any questions or concerns.
== END 2024-01-12 11:18 | disposition home or self-care (01) ==
LOC: WC 08:30
PROVIDERS: PCP Family Medicine; Visit Provider Student in an Organized Health Care Education/Training Program
DX: E11.621 Type 2 diabetes mellitus with foot ulcer (principal); L97.512 Non-pressure chronic ulcer of other part of right foot with fat layer exposed; Z89.512 Acquired absence of left leg below knee; E11.42 Type 2 diabetes mellitus with diabetic polyneuropathy; Z79.84 Long term (current) use of oral hypoglycemic drugs; Z79.899 Other long term (current) drug therapy
CPT/HCPCS: 11042; 99213; G0463